=== PATIENT | male | born 1955 | race Caucasian/White ===

== ENCOUNTER 2016-11-13 22:14 | Inpatient (IN) | payer MEDICARE, OTHER ==
[2016-11-13 22:38] LABS: % BASOPHILS 3.7 % (0.0-2.0); % EOSINOPHILS 1.8 % (0.0-5.0); % LYMPHOCYTES 21.2 % (20.0-50.0); % MONOCYTES 8.3 % (2.0-10.0); HEMATOCRIT 43.5 % (41.0-60); MEAN CELL VOLUME 89.4 fl (80-99); MEAN CORPUSCULAR HEMOGLOBIN 28.9 pg (26.0-30.0); MEAN CORPUSCULAR HGB CONC 32.3 pg (28.0-36.0); MEAN PLATELET VOLUME 7.9 fl; NEUTROPHILE ABSOLUTE 4.1 Th/cmm (1.8-8.0); PLATELET COUNT 261 Th/cmm (150-400); RED BLOOD COUNT 4.86 Mil/cmm (4.30-5.70)
[2016-11-13 22:42] LABS: WHITE BLOOD COUNT 6.2 Th/cmm (4.8-10.8)
[2016-11-13 22:53] LABS: ANION GAP 8.6 (7.0-16.0); BUN - UREA NITROGEN 18 mg/dL (7-25); CALCIUM SERUM 8.4 mg/dL (8.6-10.3); CARBON DIOXIDE 20.9 mEq/L (21.0-31.0); CHLORIDE 113 mEq/L (98-107); GLUCOSE 99 mg/dL (70-105); POTASSIUM SERUM 3.5 mEq/L (3.5-5.1); SODIUM SERUM 139 mEq/L (136-145); VALPROIC ACID < 10.0 ug/mL (50.0-100.0)
[2016-11-13 22:54] LABS: URINE BILIRUBIN NEGATIVE (NEGATIVE); URINE BLOOD NEGATIVE (NEGATIVE); URINE GLUCOSE (UA) NEGATIVE (NEGATIVE); URINE KETONE NEGATIVE (NEGATIVE); URINE PROTEIN NEGATIVE (NEGATIVE); URINE UROBILINOGEN 0.2 E.U./dL (0.2 - 1.0)
[2016-11-13 22:57] LABS: URINE BACTERIA OCCASIONAL /hpf (NONE SEEN); URINE COLOR YELLOW; URINE EPITHELIAL CELLS OCCASIONAL /lpf (FEW); URINE RBC 0-2 /hpf (0-5); URINE WBC 0-2 /hpf (0-5)
[2016-11-13 23:19] VITALS: BP 134/80
[2016-11-13] MEDS ORDERED: Fleet Enema 135 mL RC PRN (23:19)
[2016-11-13] MEDS ORDERED: Maalox 30 mL Cup PO PRN (23:19)
[2016-11-13 23:26] LABS: TSH 1.99 uIU/ml (0.34-5.60)
--- NOTE | 2016-11-14 01:55 | ED Physician Chart ---
ED Chief Complaint/HPI - Patient Information Date Seen:: 11/13/16 Time Seen:: 22:20 Chief Complaint:: agitation History of Present Illness:: onset x one day of agitation; no report of SIs, H/As, neck pain, C/P, SOB, cough , Abd. Pain, A/N/V/D/C, fever, chills, or urinary s/s Allergies:: Allergies Allergy/AdvReac Type Severity Reaction Status Date / Time No Known Allergies Allergy Verified 11/13/16 22:16 Vitals:: Vital Signs - 8 hr 11/13/16 11/13/16 22:20 22:21 Temp 97.2 F 98 F HR 76 80 RR 16 16 BP 152/100 152/100 O2 Sat % 96 96 Review:: Nurse's Note Reviewed ED Review of Systems - Review of Systems General/Constitutional: No fever, No chills, No weight loss, No weakness, No diaphoresis, No edema, No loss of appetite Skin: No skin lesions, No rash, No bruising Head: No headache, No light-headedness Eyes: No loss of vision, No pain, No diplopia ENT: No earache, No nasal drainage, No sore throat, No tinnitus Neck: No neck pain, No swelling, No thyromegaly, No stiffness, No mass noted Cardio Vascular: No chest pain, No palpitations, No PND, No orthopnea, No edema Pulmonary: No SOB, No cough, No sputum, No wheezing GI: No nausea, No vomiting, No diarrhea, No pain, No melena, No hematochezia, No constipation, No hematemesis G/U: No dysuria, No frequency, No hematuria Musculoskeletal: No bone or joint pain, No back pain, No muscle pain Endocrine: No polyuria, No polydipsia Psychiatric: Prior psych history, No depression, Anxiety, No suicidal ideation, No homicidal ideation, Auditory hallucination, No visual hallucination Hematopoietic: No bruising, No lymphadenopathy Allergic/Immuno: No urticaria, No angioedema Neurological: No syncope, No focal symptoms, No weakness, No paresthesia, No headache, No seizure, No dizziness, No confusion, No vertigo ED Past Medical History - Past Medical History Obtainable: Yes Past Medical History: Seizures, Other (BPH) Family History: HTN Social History: Non Smoker, No Alcohol, No Drug Use Surgical History: None Psychiatricy History: Schizophrenia, Bipolar Medication: Reviewed Family Medical History - Family Member Mother History Unknown: Yes Ethnicity: Unknown Living Status: Unknown Hx Family Cancer: (unknown) Hx Family Coronary Artery Disease: (unknown) Hx Family Congestive Heart Failure: (unknown) Hx Family Hypertension: (unknown) Hx Family Stroke: (unknown) Hx Family Diabetes: (unknown) Hx Family Seizures: (unknown) Hx Family Dementia: (unknown) Hx Family AIDS: (unknown) Hx Family HIV: No Hx Family COPD: (unknown) Hx Family Hepatitis: (unknown) Hx Family Psychiatric Problems: (unknown) Hx Family Tuberculosis: (unknown) ED Physical Exam - Physical Examination General/Constitutional: Awake, Well-developed, well-nourished, Alert, No distress, GCS 15, Non-toxic appearing, Ambulatory Head: Atraumatic Eyes: Lids, conjuctiva normal, PERRL, EOMI Skin: Nl inspection, No rash, No skin lesions, No ecchymosis, Well hydrated, No lymphadenopathy ENMT: External ears, nose nl, Nasal exam nl, Lips, teeth, gums nl Neck: Nontender, Full ROM w/o pain, No JVD, No nuchal rigidity, No bruit, No mass, No stridor Respiratory: Nl effort/Exclusion, Clear to Auscultation, No Wheeze/Rhonchi/Rales Cardio Vascular: RRR, No murmur, gallop, rubs, NL S1 S2 GI: No tenderness/rebounding/guarding, No organomegaly, No hernia, Normal BS's, Nondistended, No mass/bruits, No McBurney tenderness : No CVA tenderness Extremities: No tenderness or effusion, Full ROM, normal strength in all extremities, No edema, Normal digits & nails Neuro/Psych: Alert/oriented, DTR's symmetric, Normal sensory exam, Normal motor strength, Normal gait, No focal deficits Other Neuro/Psych comments:: + Psychomotor Agitation; no SIs; Misc: normal gait, Normal back, No paraspinal tenderness ED Labs/Radiology/EKG Results - Lab Results Results: Laboratory Tests 11/13/16 11/13/16 11/13/16 22:20 22:30 22:30 WBC 6.2 D RBC 4.86 Hgb 14.0 Hct 43.5 MCV 89.4 MCH 28.9 MCHC Differential 32.3 RDW 15.0 Plt Count 261 MPV 7.9 Neutrophils % 65.0 Lymphocytes % 21.2 Monocytes % 8.3 Eosinophils % 1.8 Basophils % 3.7 H Sodium 139 Potassium 3.5 Chloride 113 H Carbon Dioxide 20.9 L Anion Gap 8.6 BUN 18 Creatinine 1.0 Est GFR ( Amer) > 60.0 Est GFR (Non-Af Amer) > 60.0 BUN/Creatinine Ratio 18.0 Glucose 99 Calcium 8.4 L TSH Urine Source RANDOM Urine Color YELLOW Urine Clarity CLEAR Urine pH 6.0 Ur Specific [place] 1.025 Urine Protein NEGATIVE Urine Glucose (UA) NEGATIVE Urine Ketones NEGATIVE Urine Blood NEGATIVE Urine Nitrate NEGATIVE Urine Bilirubin NEGATIVE Urine Urobilinogen 0.2 Ur Leukocyte Esterase NEGATIVE Urine RBC 0-2 H Urine WBC 0-2 Ur Epithelial Cells OCCASIONAL Urine Bacteria OCCASIONAL Valproic Acid 11/13/16 22:30 WBC RBC Hgb Hct MCV MCH MCHC Differential RDW Plt Count MPV Neutrophils % Lymphocytes % Monocytes % Eosinophils % Basophils % Sodium Potassium Chloride Carbon Dioxide Anion Gap BUN Creatinine Est GFR ( Amer) Est GFR (Non-Af Amer) BUN/Creatinine Ratio Glucose Calcium TSH 1.99 Urine Source Urine Color Urine Clarity Urine pH Ur Specific [place] Urine Protein Urine Glucose (UA) Urine Ketones Urine Blood Urine Nitrate Urine Bilirubin Urine Urobilinogen Ur Leukocyte Esterase Urine RBC Urine WBC Ur Epithelial Cells Urine Bacteria Valproic Acid < 10.0 L ED Septic Shock - . Is Septic Shock (SBP<90, OR Lactate>4 mmol\L) present?: No - <6hrs of presentation: Vital Signs: Vital Signs - 8 hr 11/13/16 11/13/16 22:20 22:21 Temp 97.2 F 98 F HR 76 80 RR 16 16 BP 152/100 152/100 O2 Sat % 96 96 ED Reassessment (Disposition) - Reassessment Reassessment Condition:: Improved - Diagnosis Diagnosis:: Agitatin; Psychosis; Manic-Depression; BiPolar Disorder; Affective Disorder - Aftercare/Follow up Instructions Aftercare/Follow-Up Instructions:: Counseled pt regarding lab results/diagnosis & need follow up, Counseled pt & family regarding lab results/diagnosis & need follow up - Patient Disposition Discharge/Transfer:: Acute Care w/in this hosp Accepting Physician:: Dr. Cerrato Admitted to:: [facility] Admitting Medical Physician:: Dr. Garcia Admitting Psych Physician:: Dr. Cerrato Condition at Disposition:: Stable, Improved ED Discharge Plan - Patient Disposition Admit/Discharge/Transfer: Other Care w/in this hosp
[2016-11-14] MEDS: Pantoprazole 40 mg EC Tab PO SCH (08:35)
[2016-11-14] MEDS: Potassium Chloride 10 mEq ER Tab PO SCH (08:36)
[2016-11-14] MEDS: Betamethasone/Clotrimazole Cream 15 gm Tube TP SCH ×2 (09:07→16:22)
--- NOTE | 2016-11-15 01:29 | History & Physical ---
ADMIT DATE: 11/13/2016 HISTORY OF PRESENT ILLNESS: The patient is a 61-year-old male with long history of hyperlipidemia, gastroesophageal reflux, chronic pain, lymphedema of lower extremities, admitted to [facility] for eval and treatment. The patient was admitted under Dr. Hurtado's service. The patient denies any chest pain, shortness of breath, nausea, vomiting, fever or chills. PAST MEDICAL HISTORY: Significant for chronic lymphedema of lower extremities, hyperlipidemia, psychosis, ____ urinary incontinence, benign prostatic hypertrophy. PAST SURGICAL HISTORY: Skin graft surgery of the face. ALLERGIES: None. MEDICATIONS: Follow admission reconciliation. SOCIAL HISTORY: No smoking, alcohol or drug. FAMILY HISTORY: Noncontributory. REVIEW OF SYSTEMS: ____ disorder. CARDIOVASCULAR SYSTEM: No coronary artery disease. ENDOCRINE SYSTEM: No diabetes or thyroid problem. GASTROINTESTINAL SYSTEM: Has history of gastroesophageal reflux. NEUROLOGICAL SYSTEM: He has history of psychosis. MUSCULOSKELETAL SYSTEM: No muscular dystrophy. HEMATOLOGIC SYSTEM: No bleeding tendencies. RESPIRATORY SYSTEM: No asthma. GENITOURINARY SYSTEM: He has benign prostatic hypertrophy. PHYSICAL EXAMINATION: GENERAL: He is awake, alert, mildly confused. VITAL SIGNS: Temperature 97.4, heart rate 77, blood pressure 129/87. HEENT: Normocephalic. Pupils reacting to light and accommodation. Sclerae clear. NECK: Supple. Negative for lymphadenopathy, JVD or bruit. CHEST: ____ Bilateral normal. No ____ rhonchi or wheezing. HEART: S1, S2 normal. No ____. ABDOMEN: Soft. Bowel sounds positive. EXTREMITIES: No edema. NEUROLOGIC: He is awake, alert, not fully oriented. SKIN: Significant for skin lesion on the face. GENITOURINARY AND RECTAL: Done by primary physician, no complaints. LABORATORY DATA: White blood cell 6.2, hemoglobin 14, hematocrit 43.5, platelets 261. Sodium 139, potassium 3.5, BUN 18, creatinine 1.0. ASSESSMENT: 1. Gastroesophageal reflux. 2. Hyperlipidemia. 3. Psychosis. 4. Benign prostatic hypertrophy. PLAN: The patient will be admitted to the hospital under Dr. Hurtado's service. MEDICAL PROBLEMS TO BE ADDRESSED DURING HOSPITALIZATION: Psychosis. MEDICAL PROBLEMS TO BE ADDRESSED ____ DISCHARGE: Bladder dysfunction, hyperlipidemia, gastroesophageal reflux. The patient is medically stable for activity. Thank you, Dr. Hurtado, for asking me to see your patient. JOB# [id number]
[2016-11-15] MEDS: Pantoprazole 40 mg EC Tab PO SCH (09:06)
[2016-11-15] MEDS: Potassium Chloride 10 mEq ER Tab PO SCH (09:06)
[2016-11-15] MEDS: Betamethasone/Clotrimazole Cream 15 gm Tube TP SCH ×2 (09:07→16:26)
--- NOTE | 2016-11-15 15:11 | Internal Medicine Prog Note ---
Internal Medicine Subjective - Subjective Service Date: 11/15/16 Patient seen and examined:: without staff Patient is:: awake, in bed, talking Per staff patient has:: no adverse event (HE FEELS BETTER,NO COMPLAINTS.) Internal Medicine Objective - Results Result Diagrams: 11/13/16 22:30 11/13/16 22:30 Recent Labs: Laboratory Last Values WBC 6.2 Th/cmm (4.8-10.8) D 11/13/16: RBC 4.86 Mil/cmm (4.30-5.70) 11/13/16 22:30 Hgb 14.0 gm/dL (12-16) 11/13/16: Hct 43.5 % (41.0-60) 11/13/16: MCV 89.4 fl (80-99) 11/13/16 22: MCH 28.9 pg (26.0-30.0) 11/13/16: MCHC Differential 32.3 pg (28.0-36.0) 11/13/16: RDW 15.0 % (11.5-20.0) 11/13/16: Plt Count 261 Th/cmm (150-400) 11/13/16 22:30 MPV 7.9 fl 11/13/16 22:30 Neutrophils % 65.0 % (40.0-80.0) 11/13/16 22:30 Lymphocytes % 21.2 % (20.0-50.0) 11/13/16: Monocytes % 8.3 % (2.0-10.0) 11/13/16: Eosinophils % 1.8 % (0.0-5.0) 11/13/16 22: Basophils % 3.7 % (0.0-2.0) H 11/13/16 22:30 Sodium 139 mEq/L (136-145) 11/13/16 22:30 Potassium 3.5 mEq/L (3.5-5.1) 11/13/16 22:30 Chloride 113 mEq/L (98-107) H 11/13/16 22:30 Carbon Dioxide 20.9 mEq/L (21.0-31.0) L 11/13/16: Anion Gap 8.6 (7.0-16.0) 11/13/16 22:30 BUN 18 mg/dL (7-25) 11/13/16 22:30 Creatinine 1.0 mg/dL (0.7-1.3) 11/13/16 22:30 Est GFR ( Amer) > 60.0 ml/min (>90) 11/13/16 22:30 Est GFR (Non-Af Amer) > 60.0 ml/min 11/13/16 22:30 BUN/Creatinine Ratio 18.0 11/13/16 22:30 Glucose 99 mg/dL (70-105) 11/13/16 22:30 Calcium 8.4 mg/dL (8.6-10.3) L 11/13/16 22:30 TSH 1.99 uIU/ml (0.34-5.60) 11/13/16 22:30 Urine Source RANDOM 11/13/16 22:20 Urine Color YELLOW 11/13/16 22:20 Urine Clarity CLEAR (CLEAR) 11/13/16 22:20 Urine pH 6.0 (4.6 - 8.0) 11/13/16 22:20 Ur Specific [place] 1.025 (1.005-1.030) 11/13/16 22:20 Urine Protein NEGATIVE mg/dL (NEGATIVE) 11/13/16 22:20 Urine Glucose (UA) NEGATIVE mg/dL (NEGATIVE) 11/13/16 22:20 Urine Ketones NEGATIVE mg/dL (NEGATIVE) 11/13/16 22:20 Urine Blood NEGATIVE (NEGATIVE) 11/13/16 22:20 Urine Nitrate NEGATIVE (NEGATIVE) 11/13/16 22:20 Urine Bilirubin NEGATIVE (NEGATIVE) 11/13/16 22:20 Urine Urobilinogen 0.2 E.U./dL (0.2 - 1.0) 11/13/16 22:20 Ur Leukocyte Esterase NEGATIVE (NEGATIVE) 11/13/16 22:20 Urine RBC 0-2 /hpf (0-5) H 11/13/16 22:20 Urine WBC 0-2 /hpf (0-5) 11/13/16 22:20 Ur Epithelial Cells OCCASIONAL /lpf (FEW) 11/13/16 22:20 Urine Bacteria OCCASIONAL /hpf (NONE SEEN) 11/13/16 22:20 Valproic Acid < 10.0 ug/mL (50.0-100.0) L 11/13/16 22:30 RPR NONREACTIVE (NONREACTIVE) 11/13/16 22:30 - Physical Exam Vitals and I&O: Vital Signs Temp 97.3 F 11/15/16 06:46 Pulse 80 11/15/16 06:46 Resp 20 11/15/16 06:46 BP 124/86 11/15/16 09:07 Pulse Ox 100 11/15/16 06:46 Intake & Output 11/14/16 11/15/16 11/15/16 18:59 06:59 18:59 Intake Total 2400 120 Balance 2400 120 Intake: Oral 2400 120 Other: # Voids 4 3 # Bowel Movements 0 Active Medications: Current Medications Acetaminophen (Tylenol) 650 mg PO Q6H PRN PRN Reason: Mild Pain/Headache/T above 101 Stop: 01/12/17 23:18 Al Hydrox/Mg Hydrox/Simethicone (Maalox) 30 ml PO Q6H PRN PRN Reason: Dyspepsia Stop: 01/12/17 23:18 Last Admin: 11/15/16 14:32 Dose: 30 ml Baclofen (Lioresal) 10 mg PO BID JANEY Stop: 01/13/17 08:59 Last Admin: 11/15/16 09:06 Dose: 10 mg Betamethasone/Clotrimazole (Lotrisone Cream) 1 appl TP BID [facility] Stop: 01/13/17 08:59 Last Admin: 11/15/16 09:07 Dose: 1 appl Divalproex Sodium (Depakote Dr) 500 mg PO HS JANEY PRN Reason: Protocol Stop: 01/13/17 20:59 Last Admin: 11/14/16 21:02 Dose: 500 mg Docusate Sodium (Colace) 100 mg PO DAILY JANEY Stop: 01/13/17 08:59 Last Admin: 11/15/16 09:06 Dose: 100 mg Furosemide (Lasix) 20 mg PO DAILY JANEY Stop: 01/13/17 08:59 Last Admin: 11/15/16 09:07 Dose: 20 mg Lorazepam (Ativan) 1 mg PO Q6H PRN; Protocol PRN Reason: Anxiety/Agitation Stop: 01/12/17 23:18 Pantoprazole Sodium (Protonix) 40 mg PO DAILY JANEY Stop: 01/13/17 08:59 Last Admin: 11/15/16 09:06 Dose: 40 mg Potassium Chloride (Klor-Con) 10 meq PO DAILY JANEY Stop: 01/13/17 08:59 Last Admin: 11/15/16 09:06 Dose: 10 meq Quetiapine Fumarate (Seroquel) 100 mg PO BID JANEY PRN Reason: Protocol Stop: 01/13/17 16:59 Last Admin: 11/15/16 09:06 Dose: 100 mg Simvastatin (Zocor) 20 mg PO HS JANEY Stop: 01/13/17 20:59 Last Admin: 11/14/16 21:02 Dose: 20 mg Sodium Phosphate (Fleet Enema) 135 ml RC DAILY PRN PRN Reason: Constipation Stop: 01/12/17 23:18 Tamsulosin HCl (Flomax) 0.4 mg PO DAILY JANEY Stop: 01/13/17 08:59 Last Admin: 11/15/16 09:05 Dose: 0.4 mg Temazepam (Restoril) 30 mg PO HS JANEY Stop: 01/12/17 23:44 Last Admin: 11/14/16 21:02 Dose: 30 mg Trazodone HCl (Desyrel) 100 mg PO HS JANEY Stop: 01/13/17 20:59 Last Admin: 11/14/16 21:02 Dose: 100 mg General: demented HEENT: NC/AT, PERRLA, EOMI, anicteric sclerae, throat clear Neck: Supple, No JVD, No thyromegaly, +2 carotid pulse wo bruit Lungs: CTAB Cardiovascular: RRR, Normal S1, Normal S2, without murmur Abdomen: soft, non-tender, non-distended Extremities: clear Neurological: gait stable - Procedures Procedures: Procedures Procedure Code Date ABDOMEN SURGERY PROCEDURE 29968 07/30/99 CHOLECYSTECTOMY 51.22 07/30/99 DIAGNOSTIC COLONOSCOPY 25326 10/09/99 DILATION OF INTESTINE 46.85 10/09/99 DX ULTRASOUND-ABDOMEN 88.76 07/30/99 EGD BIOPSY SINGLE/MULTIPLE 36709 08/27/99 ELECTROCARDIOGRAM 89.52 10/09/99 ELECTROCARDIOGRAM COMPLETE 70967 10/09/99 ENDOSC RETROGRADE CHOLANGIOPANCREATOGRAPHY [ERCP] 51.10 07/30/99 ERCP W/SPECIMEN COLLECTION 87106 07/30/99 ESOPHAGOGASTRODUODENOSCOPY [EGD] W/CLOSED BIOPSY 45.16 08/27/99 OTH LYSIS-PERITONEAL ADHES 54.59 07/30/99 OTHER GROUP THERAPY 94.44 07/06/14 REMOVAL OF GALLBLADDER 39919 07/30/99 US EXAM ABDOM COMPLETE 25583 07/30/99 Internal Medicine Assmt/Plan - Assessment Assessment: 1.HYPERLIPIDEMEA. 2.BPH. 3.EDINSON. 4.PSYCHOSIS. - Plan Plan: CONTINUE ON CURRENT MEDICATION AND DIET.
[2016-11-16] MEDS: Potassium Chloride 10 mEq ER Tab PO SCH (08:31)
[2016-11-16] MEDS: Pantoprazole 40 mg EC Tab PO SCH (08:31)
[2016-11-16] MEDS: Betamethasone/Clotrimazole Cream 15 gm Tube TP SCH ×2 (08:32→16:13)
--- NOTE | 2016-11-16 16:55 | General Progress Note ---
Subjective - Review of Systems Service Date: 11/16/16 Subjective: RESTING COMFORTABLY NO DISTRESS Objective - Results Result Diagrams: 11/13/16 22:30 11/13/16 22:30 Recent Labs: Laboratory Last Values WBC 6.2 Th/cmm (4.8-10.8) D 11/13/16 22:30 RBC 4.86 Mil/cmm (4.30-5.70) 11/13/16 22:30 Hgb 14.0 gm/dL (12-16) 11/13/16 22:30 Hct 43.5 % (41.0-60) 11/13/16 22:30 MCV 89.4 fl (80-99) 11/13/16 22:30 MCH 28.9 pg (26.0-30.0) 11/13/16 22:30 MCHC Differential 32.3 pg (28.0-36.0) 11/13/16 22:30 RDW 15.0 % (11.5-20.0) 11/13/16 22:30 Plt Count 261 Th/cmm (150-400) 11/13/16 22:30 MPV 7.9 fl 11/13/16 22:30 Neutrophils % 65.0 % (40.0-80.0) 11/13/16 22:30 Lymphocytes % 21.2 % (20.0-50.0) 11/13/16 22: Monocytes % 8.3 % (2.0-10.0) 11/13/16 22:30 Eosinophils % 1.8 % (0.0-5.0) 11/13/16 22: Basophils % 3.7 % (0.0-2.0) H 11/13/16 22:30 Sodium 139 mEq/L (136-145) 11/13/16 22:30 Potassium 3.5 mEq/L (3.5-5.1) 11/13/16 22:30 Chloride 113 mEq/L (98-107) H 11/13/16 22:30 Carbon Dioxide 20.9 mEq/L (21.0-31.0) L 11/13/16 22:30 Anion Gap 8.6 (7.0-16.0) 11/13/16 22:30 BUN 18 mg/dL (7-25) 11/13/16 22:30 Creatinine 1.0 mg/dL (0.7-1.3) 11/13/16 22:30 Est GFR ( Amer) > 60.0 ml/min (>90) 11/13/16 22:30 Est GFR (Non-Af Amer) > 60.0 ml/min 11/13/16 22:30 BUN/Creatinine Ratio 18.0 11/13/16 22:30 Glucose 99 mg/dL (70-105) 11/13/16 22:30 Calcium 8.4 mg/dL (8.6-10.3) L 11/13/16 22:30 TSH 1.99 uIU/ml (0.34-5.60) 11/13/16 22:30 Urine Source RANDOM 11/13/16 22:20 Urine Color YELLOW 11/13/16 22:20 Urine Clarity CLEAR (CLEAR) 11/13/16 22:20 Urine pH 6.0 (4.6 - 8.0) 11/13/16 22:20 Ur Specific [place] 1.025 (1.005-1.030) 11/13/16 22:20 Urine Protein NEGATIVE mg/dL (NEGATIVE) 11/13/16 22:20 Urine Glucose (UA) NEGATIVE mg/dL (NEGATIVE) 11/13/16 22:20 Urine Ketones NEGATIVE mg/dL (NEGATIVE) 11/13/16 22:20 Urine Blood NEGATIVE (NEGATIVE) 11/13/16 22:20 Urine Nitrate NEGATIVE (NEGATIVE) 11/13/16 22:20 Urine Bilirubin NEGATIVE (NEGATIVE) 11/13/16 22:20 Urine Urobilinogen 0.2 E.U./dL (0.2 - 1.0) 11/13/16 22:20 Ur Leukocyte Esterase NEGATIVE (NEGATIVE) 11/13/16 22:20 Urine RBC 0-2 /hpf (0-5) H 11/13/16 22:20 Urine WBC 0-2 /hpf (0-5) 11/13/16 22:20 Ur Epithelial Cells OCCASIONAL /lpf (FEW) 11/13/16 22:20 Urine Bacteria OCCASIONAL /hpf (NONE SEEN) 11/13/16 22:20 Valproic Acid < 10.0 ug/mL (50.0-100.0) L 11/13/16 22:30 RPR NONREACTIVE (NONREACTIVE) 11/13/16 22:30 - Physical Exam Vitals and I&O: Vital Signs Temp 97.6 F 11/16/16 15:40 Pulse 83 11/16/16 15:40 Resp 18 11/16/16 15:40 BP 101/60 11/16/16 15:40 Pulse Ox 98 11/16/16 15:40 Intake & Output 11/15/16 11/16/16 11/16/16 18:59 06:59 18:59 Intake Total 800 360 Balance 800 360 Intake: Oral 800 360 Other: # Voids 3 2 # Bowel Movements 1 Active Medications: Current Medications Acetaminophen (Tylenol) 650 mg PO Q6H PRN PRN Reason: Mild Pain/Headache/T above 101 Stop: 01/12/17 23:18 Al Hydrox/Mg Hydrox/Simethicone (Maalox) 30 ml PO Q6H PRN PRN Reason: Dyspepsia Stop: 01/12/17 23:18 Last Admin: 11/15/16 14:32 Dose: 30 ml Baclofen (Lioresal) 10 mg PO BID JANEY Stop: 01/13/17 08:59 Last Admin: 11/16/16 16:13 Dose: 10 mg Betamethasone/Clotrimazole (Lotrisone Cream) 1 appl TP BID JANEY Stop: 01/13/17 08:59 Last Admin: 11/16/16 16:13 Dose: 1 appl Divalproex Sodium (Depakote Dr) 500 mg PO HS JANEY PRN Reason: Protocol Stop: 01/13/17 20:59 Last Admin: 11/15/16 20:30 Dose: 500 mg Docusate Sodium (Colace) 100 mg PO DAILY JANEY Stop: 01/13/17 08:59 Last Admin: 11/16/16 08:30 Dose: 100 mg Furosemide (Lasix) 20 mg PO DAILY JANEY Stop: 01/13/17 08:59 Last Admin: 11/16/16 08:31 Dose: 20 mg Lorazepam (Ativan) 1 mg PO Q6H PRN; Protocol PRN Reason: Anxiety/Agitation Stop: 01/12/17 23:18 Pantoprazole Sodium (Protonix) 40 mg PO DAILY JANEY Stop: 01/13/17 08:59 Last Admin: 11/16/16 08:31 Dose: 40 mg Potassium Chloride (Klor-Con) 10 meq PO DAILY JANEY Stop: 01/13/17 08:59 Last Admin: 11/16/16 08:31 Dose: 10 meq Quetiapine Fumarate (Seroquel) 100 mg PO BID JANEY PRN Reason: Protocol Stop: 01/13/17 16:59 Last Admin: 11/16/16 16:15 Dose: 100 mg Simvastatin (Zocor) 20 mg PO HS [facility] Stop: 01/13/17 20:59 Last Admin: 11/15/16 20:30 Dose: 20 mg Sodium Phosphate (Fleet Enema) 135 ml RC DAILY PRN PRN Reason: Constipation Stop: 01/12/17 23:18 Tamsulosin HCl (Flomax) 0.4 mg PO DAILY [facility] Stop: 01/13/17 08:59 Last Admin: 11/16/16 08:32 Dose: 0.4 mg Temazepam (Restoril) 30 mg PO HS [facility] Stop: 01/12/17 23:44 Last Admin: 11/15/16 20:30 Dose: 30 mg Trazodone HCl (Desyrel) 100 mg PO HS [facility] Stop: 01/13/17 20:59 Last Admin: 11/15/16 20:30 Dose: 100 mg General: Alert HEENT: Atraumatic, PERRLA, EOMI Neck: Supple, JVD Cardiovascular: Regular rate, Normal S1, Normal S2 Lungs: Clear to auscultation Abdomen: Bowel sounds, Soft - Procedures Procedures: Procedures Procedure Code Date ABDOMEN SURGERY PROCEDURE 22377 07/30/99 CHOLECYSTECTOMY 51.22 07/30/99 DIAGNOSTIC COLONOSCOPY 50638 10/09/99 DILATION OF INTESTINE 46.85 10/09/99 DX ULTRASOUND-ABDOMEN 88.76 07/30/99 EGD BIOPSY SINGLE/MULTIPLE 44955 08/27/99 ELECTROCARDIOGRAM 89.52 10/09/99 ELECTROCARDIOGRAM COMPLETE 96431 10/09/99 ENDOSC RETROGRADE CHOLANGIOPANCREATOGRAPHY [ERCP] 51.10 07/30/99 ERCP W/SPECIMEN COLLECTION 37690 07/30/99 ESOPHAGOGASTRODUODENOSCOPY [EGD] W/CLOSED BIOPSY 45.16 08/27/99 OTH LYSIS-PERITONEAL ADHES 54.59 07/30/99 OTHER GROUP THERAPY 94.44 07/06/14 REMOVAL OF GALLBLADDER 69352 07/30/99 US EXAM ABDOM COMPLETE 63983 07/30/99 Assessment/Plan - Problem List Patient Problems: All Active Problems Chest pain (Acute) R07.9 Depression (Acute) F32.9 Kidney stones (Acute) Pain (Acute) R52 - Assessment Assessment: 1.HYPERLIPIDEMEA. 2.BPH. 3.EDINSON. 4.PSYCHOSIS. - Plan Plan: CONT CURRENT TREATMENT
--- NOTE | 2016-11-16 21:19 | Progress Notes ---
DATE: 11/16/2016 SUBJECTIVE: Chart reviewed and the patient interviewed. Also discussed the patient's condition with the staff and reviewed records and labs. The patient continued to be confused and he continued to talk about his coming to the hospital in order to have surgery. Also, is still suspicious and paranoid and is still extremely agitated and irritable. The patient also had difficulty hearing and I have to speak louder in order to hear me. Also, personal hygiene is still poor and patient is still disheveled. ASSESSMENT: The patient is still agitated and psychotic. TREATMENT PLAN: We will continue monitoring his behavior and his condition closely. Also, continue Depakote and adjusting the dose of Seroquel. Also, continue to work on his irritability and confusion. JOB# [id number]
--- NOTE | 2016-11-17 07:55 | General Progress Note ---
Subjective - Review of Systems Service Date: 11/17/16 Subjective: RESTING COMFORTABLY NO DISTRESS Objective - Results Result Diagrams: 11/13/16 22:30 11/13/16 22:30 Recent Labs: Laboratory Last Values WBC 6.2 Th/cmm (4.8-10.8) D 11/13/16 22:30 RBC 4.86 Mil/cmm (4.30-5.70) 11/13/16 22:30 Hgb 14.0 gm/dL (12-16) 11/13/16 22:30 Hct 43.5 % (41.0-60) 11/13/16 22:30 MCV 89.4 fl (80-99) 11/13/16 22:30 MCH 28.9 pg (26.0-30.0) 11/13/16 22: MCHC Differential 32.3 pg (28.0-36.0) 11/13/16 22:30 RDW 15.0 % (11.5-20.0) 11/13/16 22:30 Plt Count 261 Th/cmm (150-400) 11/13/16 22:30 MPV 7.9 fl 11/13/16 22:30 Neutrophils % 65.0 % (40.0-80.0) 11/13/16 22:30 Lymphocytes % 21.2 % (20.0-50.0) 11/13/16 22: Monocytes % 8.3 % (2.0-10.0) 11/13/16 22:30 Eosinophils % 1.8 % (0.0-5.0) 11/13/16 22: Basophils % 3.7 % (0.0-2.0) H 11/13/16 22:30 Sodium 139 mEq/L (136-145) 11/13/16 22:30 Potassium 3.5 mEq/L (3.5-5.1) 11/13/16 22:30 Chloride 113 mEq/L (98-107) H 11/13/16 22:30 Carbon Dioxide 20.9 mEq/L (21.0-31.0) L 11/13/16 22:30 Anion Gap 8.6 (7.0-16.0) 11/13/16 22:30 BUN 18 mg/dL (7-25) 11/13/16 22:30 Creatinine 1.0 mg/dL (0.7-1.3) 11/13/16 22:30 Est GFR ( Amer) > 60.0 ml/min (>90) 11/13/16 22:30 Est GFR (Non-Af Amer) > 60.0 ml/min 11/13/16 22:30 BUN/Creatinine Ratio 18.0 11/13/16 22:30 Glucose 99 mg/dL (70-105) 11/13/16 22:30 Calcium 8.4 mg/dL (8.6-10.3) L 11/13/16 22:30 TSH 1.99 uIU/ml (0.34-5.60) 11/13/16 22:30 Urine Source RANDOM 11/13/16 22:20 Urine Color YELLOW 11/13/16 22:20 Urine Clarity CLEAR (CLEAR) 11/13/16 22:20 Urine pH 6.0 (4.6 - 8.0) 11/13/16 22:20 Ur Specific [place] 1.025 (1.005-1.030) 11/13/16 22:20 Urine Protein NEGATIVE mg/dL (NEGATIVE) 11/13/16 22:20 Urine Glucose (UA) NEGATIVE mg/dL (NEGATIVE) 11/13/16 22:20 Urine Ketones NEGATIVE mg/dL (NEGATIVE) 11/13/16 22:20 Urine Blood NEGATIVE (NEGATIVE) 11/13/16 22:20 Urine Nitrate NEGATIVE (NEGATIVE) 11/13/16 22:20 Urine Bilirubin NEGATIVE (NEGATIVE) 11/13/16 22:20 Urine Urobilinogen 0.2 E.U./dL (0.2 - 1.0) 11/13/16 22:20 Ur Leukocyte Esterase NEGATIVE (NEGATIVE) 11/13/16 22:20 Urine RBC 0-2 /hpf (0-5) H 11/13/16 22:20 Urine WBC 0-2 /hpf (0-5) 11/13/16 22:20 Ur Epithelial Cells OCCASIONAL /lpf (FEW) 11/13/16 22:20 Urine Bacteria OCCASIONAL /hpf (NONE SEEN) 11/13/16 22:20 Valproic Acid < 10.0 ug/mL (50.0-100.0) L 11/13/16 22:30 RPR NONREACTIVE (NONREACTIVE) 11/13/16 22:30 - Physical Exam Vitals and I&O: Vital Signs Temp 98.2 F 11/17/16 06:45 Pulse 69 11/17/16 06:45 Resp 18 11/17/16 06:45 BP 98/63 11/17/16 06:45 Pulse Ox 98 11/17/16 06:45 Intake & Output 11/16/16 11/17/16 11/17/16 18:59 06:59 18:59 Intake Total 1000 480 Balance 1000 480 Intake: Oral 1000 480 Other: # Voids 4 1 # Bowel Movements 1 Active Medications: Current Medications Acetaminophen (Tylenol) 650 mg PO Q6H PRN PRN Reason: Mild Pain/Headache/T above 101 Stop: 01/12/17 23:18 Last Admin: 11/17/16 03:58 Dose: 650 mg Al Hydrox/Mg Hydrox/Simethicone (Maalox) 30 ml PO Q6H PRN PRN Reason: Dyspepsia Stop: 01/12/17 23:18 Last Admin: 11/15/16 14:32 Dose: 30 ml Baclofen (Lioresal) 10 mg PO BID [facility] Stop: 01/13/17 08:59 Last Admin: 11/16/16 16:13 Dose: 10 mg Betamethasone/Clotrimazole (Lotrisone Cream) 1 appl TP BID [facility] Stop: 01/13/17 08:59 Last Admin: 11/16/16 16:13 Dose: 1 appl Divalproex Sodium (Depakote Dr) 500 mg PO HS [facility] PRN Reason: Protocol Stop: 01/13/17 20:59 Last Admin: 11/16/16 20:31 Dose: 500 mg Docusate Sodium (Colace) 100 mg PO DAILY [facility] Stop: 01/13/17 08:59 Last Admin: 11/16/16 08:30 Dose: 100 mg Furosemide (Lasix) 20 mg PO DAILY [facility] Stop: 01/13/17 08:59 Last Admin: 11/16/16 08:31 Dose: 20 mg Lorazepam (Ativan) 1 mg PO Q6H PRN; Protocol PRN Reason: Anxiety/Agitation Stop: 01/12/17 23:18 Pantoprazole Sodium (Protonix) 40 mg PO DAILY [facility] Stop: 01/13/17 08:59 Last Admin: 11/16/16 08:31 Dose: 40 mg Potassium Chloride (Klor-Con) 10 meq PO DAILY [facility] Stop: 01/13/17 08:59 Last Admin: 11/16/16 08:31 Dose: 10 meq Quetiapine Fumarate (Seroquel) 100 mg PO BID [facility] PRN Reason: Protocol Stop: 01/13/17 16:59 Last Admin: 11/16/16 16:15 Dose: 100 mg Simvastatin (Zocor) 20 mg PO HS [facility] Stop: 01/13/17 20:59 Last Admin: 11/16/16 20:30 Dose: 20 mg Sodium Phosphate (Fleet Enema) 135 ml RC DAILY PRN PRN Reason: Constipation Stop: 01/12/17 23:18 Tamsulosin HCl (Flomax) 0.4 mg PO DAILY [facility] Stop: 01/13/17 08:59 Last Admin: 11/16/16 08:32 Dose: 0.4 mg Temazepam (Restoril) 30 mg PO HS [facility] Stop: 01/12/17 23:44 Last Admin: 11/16/16 20:31 Dose: 30 mg Trazodone HCl (Desyrel) 100 mg PO HS [facility] Stop: 01/13/17 20:59 Last Admin: 11/16/16 20:31 Dose: 100 mg General: Alert HEENT: Atraumatic, PERRLA, EOMI Neck: Supple, JVD Cardiovascular: Regular rate, Normal S1, Normal S2 Lungs: Clear to auscultation Abdomen: Bowel sounds, Soft - Procedures Procedures: Procedures Procedure Code Date ABDOMEN SURGERY PROCEDURE 95854 07/30/99 CHOLECYSTECTOMY 51.22 07/30/99 DIAGNOSTIC COLONOSCOPY 23776 10/09/99 DILATION OF INTESTINE 46.85 10/09/99 DX ULTRASOUND-ABDOMEN 88.76 07/30/99 EGD BIOPSY SINGLE/MULTIPLE 21608 08/27/99 ELECTROCARDIOGRAM 89.52 10/09/99 ELECTROCARDIOGRAM COMPLETE 03419 10/09/99 ENDOSC RETROGRADE CHOLANGIOPANCREATOGRAPHY [ERCP] 51.10 07/30/99 ERCP W/SPECIMEN COLLECTION 57997 07/30/99 ESOPHAGOGASTRODUODENOSCOPY [EGD] W/CLOSED BIOPSY 45.16 08/27/99 OTH LYSIS-PERITONEAL ADHES 54.59 07/30/99 OTHER GROUP THERAPY 94.44 07/06/14 REMOVAL OF GALLBLADDER 50480 07/30/99 US EXAM ABDOM COMPLETE 02612 07/30/99 Assessment/Plan - Problem List Patient Problems: All Active Problems Chest pain (Acute) R07.9 Depression (Acute) F32.9 Kidney stones (Acute) Pain (Acute) R52 - Assessment Assessment: 1.HYPERLIPIDEMEA. 2.BPH. 3.EDINSON. 4.PSYCHOSIS. - Plan Plan: CONT CURRENT TREATMENT
[2016-11-17] MEDS: Betamethasone/Clotrimazole Cream 15 gm Tube TP SCH ×2 (08:10→16:56)
[2016-11-17] MEDS: Pantoprazole 40 mg EC Tab PO SCH (08:11)
[2016-11-17] MEDS: Potassium Chloride 10 mEq ER Tab PO SCH (08:13)
--- NOTE | 2016-11-17 20:28 | Progress Notes ---
DATE: 11/17/2016 SUBJECTIVE: Chart reviewed and the patient interviewed. Also discussed the patient's condition with the staff and reviewed records and labs. The patient is still isolative and is still withdrawn. Also, interacting minimally with others. The patient also is still suspicious and paranoid. During interview, he still thinks that he is in the hospital in order to have surgery. He also still has mood swings and he still does not want to leave the room and wants to stay by himself all the time. The patient also is still disheveled and also seems to be preoccupied. ASSESSMENT: The patient is still psychotic. TREATMENT PLAN: The patient is complaining that the Seroquel during the day makes him tired and sedated. We will change Seroquel to 100 mg at bedtime and we will continue to follow up. JOB# [id number]
[2016-11-18] MEDS: Betamethasone/Clotrimazole Cream 15 gm Tube TP SCH ×2 (08:08→16:32)
[2016-11-18] MEDS: Pantoprazole 40 mg EC Tab PO SCH (08:08)
[2016-11-18] MEDS: Potassium Chloride 10 mEq ER Tab PO SCH (08:08)
--- NOTE | 2016-11-18 19:15 | Internal Medicine Prog Note ---
Internal Medicine Subjective - Subjective Service Date: 11/18/16 Patient seen and examined:: with staff Patient is:: awake, in bed, talking Per staff patient has:: no adverse event (HE FEELS BETTER,NO COMPLAINTS.) Internal Medicine Objective - Results Result Diagrams: 11/13/16 22:30 11/13/16 22:30 Recent Labs: Laboratory Last Values WBC 6.2 Th/cmm (4.8-10.8) D 11/13/16: RBC 4.86 Mil/cmm (4.30-5.70) 11/13/16 22:30 Hgb 14.0 gm/dL (12-16) 11/13/16: Hct 43.5 % (41.0-60) 11/13/16: MCV 89.4 fl (80-99) 11/13/16 22: MCH 28.9 pg (26.0-30.0) 11/13/16: MCHC Differential 32.3 pg (28.0-36.0) 11/13/16: RDW 15.0 % (11.5-20.0) 11/13/16 22: Plt Count 261 Th/cmm (150-400) 11/13/16 22:30 MPV 7.9 fl 11/13/16 22:30 Neutrophils % 65.0 % (40.0-80.0) 11/13/16 22:30 Lymphocytes % 21.2 % (20.0-50.0) 11/13/16: Monocytes % 8.3 % (2.0-10.0) 11/13/16: Eosinophils % 1.8 % (0.0-5.0) 11/13/16 22: Basophils % 3.7 % (0.0-2.0) H 11/13/16 22:30 Sodium 139 mEq/L (136-145) 11/13/16 22:30 Potassium 3.5 mEq/L (3.5-5.1) 11/13/16 22:30 Chloride 113 mEq/L (98-107) H 11/13/16 22:30 Carbon Dioxide 20.9 mEq/L (21.0-31.0) L 11/13/16: Anion Gap 8.6 (7.0-16.0) 11/13/16 22:30 BUN 18 mg/dL (7-25) 11/13/16 22:30 Creatinine 1.0 mg/dL (0.7-1.3) 11/13/16 22:30 Est GFR ( Amer) > 60.0 ml/min (>90) 11/13/16 22:30 Est GFR (Non-Af Amer) > 60.0 ml/min 11/13/16 22:30 BUN/Creatinine Ratio 18.0 11/13/16 22:30 Glucose 99 mg/dL (70-105) 11/13/16 22:30 Calcium 8.4 mg/dL (8.6-10.3) L 11/13/16 22:30 TSH 1.99 uIU/ml (0.34-5.60) 11/13/16 22:30 Urine Source RANDOM 11/13/16 22:20 Urine Color YELLOW 11/13/16 22:20 Urine Clarity CLEAR (CLEAR) 11/13/16 22:20 Urine pH 6.0 (4.6 - 8.0) 11/13/16 22:20 Ur Specific [place] 1.025 (1.005-1.030) 11/13/16 22:20 Urine Protein NEGATIVE mg/dL (NEGATIVE) 11/13/16 22:20 Urine Glucose (UA) NEGATIVE mg/dL (NEGATIVE) 11/13/16 22:20 Urine Ketones NEGATIVE mg/dL (NEGATIVE) 11/13/16 22:20 Urine Blood NEGATIVE (NEGATIVE) 11/13/16 22:20 Urine Nitrate NEGATIVE (NEGATIVE) 11/13/16 22:20 Urine Bilirubin NEGATIVE (NEGATIVE) 11/13/16 22:20 Urine Urobilinogen 0.2 E.U./dL (0.2 - 1.0) 11/13/16 22:20 Ur Leukocyte Esterase NEGATIVE (NEGATIVE) 11/13/16 22:20 Urine RBC 0-2 /hpf (0-5) H 11/13/16 22:20 Urine WBC 0-2 /hpf (0-5) 11/13/16 22:20 Ur Epithelial Cells OCCASIONAL /lpf (FEW) 11/13/16 22:20 Urine Bacteria OCCASIONAL /hpf (NONE SEEN) 11/13/16 22:20 Valproic Acid < 10.0 ug/mL (50.0-100.0) L 11/13/16 22:30 RPR NONREACTIVE (NONREACTIVE) 11/13/16 22:30 - Physical Exam Vitals and I&O: Vital Signs Temp 97.8 F 11/18/16 15:45 Pulse 73 11/18/16 15:45 Resp 18 11/18/16 15:45 BP 160/66 11/18/16 15:45 Pulse Ox 96 11/18/16 15:45 Intake & Output 11/18/16 11/18/16 11/19/16 06:59 18:59 06:59 Intake Total 360 2200 Balance 360 2200 Intake: Oral 360 2200 Other: # Voids 1 4 # Bowel Movements 0 0 Active Medications: Current Medications Acetaminophen (Tylenol) 650 mg PO Q6H PRN PRN Reason: Mild Pain/Headache/T above 101 Stop: 01/12/17 23:18 Last Admin: 11/17/16 03:58 Dose: 650 mg Al Hydrox/Mg Hydrox/Simethicone (Maalox) 30 ml PO Q6H PRN PRN Reason: Dyspepsia Stop: 01/12/17 23:18 Last Admin: 11/15/16 14:32 Dose: 30 ml Baclofen (Lioresal) 10 mg PO BID [facility] Stop: 01/13/17 08:59 Last Admin: 11/18/16 16:32 Dose: 10 mg Betamethasone/Clotrimazole (Lotrisone Cream) 1 appl TP BID [facility] Stop: 01/13/17 08:59 Last Admin: 11/18/16 16:32 Dose: 1 appl Divalproex Sodium (Depakote Dr) 500 mg PO HS [facility] PRN Reason: Protocol Stop: 01/13/17 20:59 Last Admin: 11/17/16 20:23 Dose: 500 mg Docusate Sodium (Colace) 100 mg PO DAILY [facility] Stop: 01/13/17 08:59 Last Admin: 11/18/16 08:08 Dose: 100 mg Furosemide (Lasix) 20 mg PO DAILY [facility] Stop: 01/13/17 08:59 Last Admin: 11/18/16 08:08 Dose: Not Given Lorazepam (Ativan) 1 mg PO Q6H PRN; Protocol PRN Reason: Anxiety/Agitation Stop: 11/12/17 23:18 Pantoprazole Sodium (Protonix) 40 mg PO DAILY [facility] Stop: 01/13/17 08:59 Last Admin: 11/18/16 08:08 Dose: 40 mg Potassium Chloride (Klor-Con) 10 meq PO DAILY [facility] Stop: 01/13/17 08:59 Last Admin: 11/18/16 08:08 Dose: 10 meq Quetiapine Fumarate (Seroquel) 200 mg PO HS [facility] PRN Reason: Protocol Stop: 01/16/17 20:59 Last Admin: 11/17/16 20:23 Dose: 200 mg Simvastatin (Zocor) 20 mg PO HS [facility] Stop: 01/13/17 20:59 Last Admin: 11/17/16 20:23 Dose: 20 mg Sodium Phosphate (Fleet Enema) 135 ml RC DAILY PRN PRN Reason: Constipation Stop: 01/12/17 23:18 Tamsulosin HCl (Flomax) 0.4 mg PO DAILY [facility] Stop: 01/13/17 08:59 Last Admin: 11/18/16 08:09 Dose: 0.4 mg Temazepam (Restoril) 30 mg PO HS [facility] Stop: 01/12/17 23:44 Last Admin: 11/17/16 20:23 Dose: 30 mg Trazodone HCl (Desyrel) 100 mg PO HS [facility] Stop: 01/13/17 20:59 Last Admin: 11/17/16 20:23 Dose: 100 mg General: demented HEENT: NC/AT, PERRLA, EOMI, anicteric sclerae, throat clear Neck: Supple, No JVD, No thyromegaly, +2 carotid pulse wo bruit Lungs: CTAB Cardiovascular: RRR, Normal S1, Normal S2, without murmur Abdomen: soft, non-tender, non-distended Extremities: clear Neurological: gait stable - Procedures Procedures: Procedures Procedure Code Date ABDOMEN SURGERY PROCEDURE 85035 07/30/99 CHOLECYSTECTOMY 51.22 07/30/99 DIAGNOSTIC COLONOSCOPY 27733 10/09/99 DILATION OF INTESTINE 46.85 10/09/99 DX ULTRASOUND-ABDOMEN 88.76 07/30/99 EGD BIOPSY SINGLE/MULTIPLE 59407 08/27/99 ELECTROCARDIOGRAM 89.52 10/09/99 ELECTROCARDIOGRAM COMPLETE 60018 10/09/99 ENDOSC RETROGRADE CHOLANGIOPANCREATOGRAPHY [ERCP] 51.10 07/30/99 ERCP W/SPECIMEN COLLECTION 05827 07/30/99 ESOPHAGOGASTRODUODENOSCOPY [EGD] W/CLOSED BIOPSY 45.16 08/27/99 OTH LYSIS-PERITONEAL ADHES 54.59 07/30/99 OTHER GROUP THERAPY 94.44 07/06/14 REMOVAL OF GALLBLADDER 26962 07/30/99 US EXAM ABDOM COMPLETE 67234 07/30/99 Internal Medicine Assmt/Plan - Assessment Assessment: 1.HYPERLIPIDEMEA. 2.BPH. 3.EDINSON. 4.PSYCHOSIS. - Plan Plan: CONTINUE ON CURRENT MEDICATION AND DIET.
--- NOTE | 2016-11-18 22:32 | Progress Notes ---
DATE: 11/18/2016 SUBJECTIVE: Chart reviewed and the patient interviewed. Also discussed the patient's condition with the staff and reviewed records and labs. The patient is still confused and agitated. The patient also is still asking about when he is going to have the surgery, and still thinks that he is in the hospital in order to have surgery. Also, is still restless and he is still anxious. Also, personal hygiene is still poor. The patient is still suspicious and paranoid. ASSESSMENT: The patient is still psychotic. TREATMENT PLAN: Continue to monitor his behavior and his condition closely. Also, continue adjusting psychotropic medications and working on his psychosis. JOB# [id number]
--- NOTE | 2016-11-19 02:05 | Psychosocial Evaluation ---
DATE OF SERVICE: 11/16/2016 AGE: 61. SEX: Male. PHYSICIAN: Dr. Hurtado. CHIEF COMPLAINT: "I want my kidney stones out." HISTORY OF PRESENT ILLNESS: The patient is a 61-year-old male who was admitted to the hospital because of confusion and agitation. The patient has been extremely agitated and in irritable and angry mood. The patient also thinks that he came to the hospital because he was going to have surgery in his bladder and kidneys and his prostate. The patient is having difficulty understanding and following any directions. Also, is easily agitated and he is argumentative. He also has been having severe mood swings. PAST PSYCHIATRIC HISTORY: The patient has history of what seems to be bipolar versus schizoaffective disorder. He is currently on Depakote 500 mg at bedtime. PAST MEDICAL HISTORY: Noncontributory. FAMILY PSYCHIATRIC HISTORY: Not known. SOCIAL HISTORY: No known alcohol or street drug use. The patient has no children. He denies any smoking cigarettes or drinking alcohol. ALLERGIES: No known allergies. MENTAL STATUS EXAMINATION: The patient appears much older than stated age. Hard of hearing and difficulty to hear in spite of speaking loud. The patient seems to be preoccupied. He denies auditory or visual hallucination, but the patient is suspicious and delusional. The patient denies suicidal or homicidal ideations. The patient is alert and seems to be oriented to situation and place but not to the date or person. Unable to assess his memory at this time because of difficulty following instructions and because of his psychosis. PRIMARY DIAGNOSIS: Schizoaffective disorder, mixed type, with psychotic features. TREATMENT PLAN: We will continue Depakote and we will add Seroquel. We will monitor behavior closely. ESTIMATED LENGTH OF STAY: 7-10 days. THE PATIENT'S STRENGTHS AND WEAKNESSES: The patient's strengths, the patient seems to be in relatively fair health. Weaknesses are s ineffective coping, also his delusions and paranoia. AFTER DISCHARGE PLAN: Outpatient treatment and followup will continue as an outpatient. [facility]# [id number]
--- NOTE | 2016-11-19 02:09 | Progress Notes ---
DATE: 11/16/2016 SUBJECTIVE: Chart reviewed and the patient interviewed. Also discussed the patient's condition with the staff and reviewed records and labs. The patient continues to be confused and he is still agitated. The patient also continued to think that he is in the hospital in order to get surgery. The patient also is still disheveled and confused and isolative and wants to be left alone and stay by himself. Also, during my interview, the patient said "I'm taking too many pills at the same time." He could not give any details of what he meant by that. ASSESSMENT: The patient is still psychotic. TREATMENT PLAN: We will continue monitoring his behavior and his condition. Also, the patient continued to take Depakote 500 mg per day and Seroquel was added. We will continue same dose and continue to work on his psychosis, as well as his agitation. JOB# [id number]
[2016-11-19] MEDS: Betamethasone/Clotrimazole Cream 15 gm Tube TP SCH ×2 (08:50→16:45)
[2016-11-19] MEDS: Pantoprazole 40 mg EC Tab PO SCH (08:52)
[2016-11-19] MEDS: Potassium Chloride 10 mEq ER Tab PO SCH (08:52)
--- NOTE | 2016-11-19 19:50 | Internal Medicine Prog Note ---
Internal Medicine Subjective - Subjective Service Date: 11/19/16 Patient seen and examined:: without staff Patient is:: awake, in bed, talking Per staff patient has:: no adverse event (HE FEELS BETTER,NO COMPLAINTS.) Internal Medicine Objective - Results Result Diagrams: 11/13/16 22:30 11/13/16 22:30 Recent Labs: Laboratory Last Values WBC 6.2 Th/cmm (4.8-10.8) D 11/13/16: RBC 4.86 Mil/cmm (4.30-5.70) 11/13/16 22:30 Hgb 14.0 gm/dL (12-16) 11/13/16: Hct 43.5 % (41.0-60) 11/13/16: MCV 89.4 fl (80-99) 11/13/16 22: MCH 28.9 pg (26.0-30.0) 11/13/16: MCHC Differential 32.3 pg (28.0-36.0) 11/13/16: RDW 15.0 % (11.5-20.0) 11/13/16 22: Plt Count 261 Th/cmm (150-400) 11/13/16 22:30 MPV 7.9 fl 11/13/16 22:30 Neutrophils % 65.0 % (40.0-80.0) 11/13/16 22:30 Lymphocytes % 21.2 % (20.0-50.0) 11/13/16: Monocytes % 8.3 % (2.0-10.0) 11/13/16: Eosinophils % 1.8 % (0.0-5.0) 11/13/16 22: Basophils % 3.7 % (0.0-2.0) H 11/13/16 22:30 Sodium 139 mEq/L (136-145) 11/13/16 22:30 Potassium 3.5 mEq/L (3.5-5.1) 11/13/16 22:30 Chloride 113 mEq/L (98-107) H 11/13/16 22:30 Carbon Dioxide 20.9 mEq/L (21.0-31.0) L 11/13/16: Anion Gap 8.6 (7.0-16.0) 11/13/16 22:30 BUN 18 mg/dL (7-25) 11/13/16 22:30 Creatinine 1.0 mg/dL (0.7-1.3) 11/13/16 22:30 Est GFR ( Amer) > 60.0 ml/min (>90) 11/13/16 22:30 Est GFR (Non-Af Amer) > 60.0 ml/min 11/13/16 22:30 BUN/Creatinine Ratio 18.0 11/13/16 22:30 Glucose 99 mg/dL (70-105) 11/13/16 22:30 Calcium 8.4 mg/dL (8.6-10.3) L 11/13/16 22:30 TSH 1.99 uIU/ml (0.34-5.60) 11/13/16 22:30 Urine Source RANDOM 11/13/16 22:20 Urine Color YELLOW 11/13/16 22:20 Urine Clarity CLEAR (CLEAR) 11/13/16 22:20 Urine pH 6.0 (4.6 - 8.0) 11/13/16 22:20 Ur Specific [place] 1.025 (1.005-1.030) 11/13/16 22:20 Urine Protein NEGATIVE mg/dL (NEGATIVE) 11/13/16 22:20 Urine Glucose (UA) NEGATIVE mg/dL (NEGATIVE) 11/13/16 22:20 Urine Ketones NEGATIVE mg/dL (NEGATIVE) 11/13/16 22:20 Urine Blood NEGATIVE (NEGATIVE) 11/13/16 22:20 Urine Nitrate NEGATIVE (NEGATIVE) 11/13/16 22:20 Urine Bilirubin NEGATIVE (NEGATIVE) 11/13/16 22:20 Urine Urobilinogen 0.2 E.U./dL (0.2 - 1.0) 11/13/16 22:20 Ur Leukocyte Esterase NEGATIVE (NEGATIVE) 11/13/16 22:20 Urine RBC 0-2 /hpf (0-5) H 11/13/16 22:20 Urine WBC 0-2 /hpf (0-5) 11/13/16 22:20 Ur Epithelial Cells OCCASIONAL /lpf (FEW) 11/13/16 22:20 Urine Bacteria OCCASIONAL /hpf (NONE SEEN) 11/13/16 22:20 Valproic Acid < 10.0 ug/mL (50.0-100.0) L 11/13/16 22:30 RPR NONREACTIVE (NONREACTIVE) 11/13/16 22:30 - Physical Exam Vitals and I&O: Vital Signs Temp 98.2 F 11/19/16 06:08 Pulse 61 11/19/16 06:08 Resp 18 11/19/16 06:08 BP 96/60 11/19/16 08:51 Pulse Ox 94 11/19/16 06:08 Intake & Output 11/19/16 11/19/16 11/20/16 06:59 18:59 06:59 Intake Total 240 Balance 240 Intake: Oral 240 Other: # Voids 3 # Bowel Movements 0 Active Medications: Current Medications Acetaminophen (Tylenol) 650 mg PO Q6H PRN PRN Reason: Mild Pain/Headache/T above 101 Stop: 01/12/17 23:18 Last Admin: 11/17/16 03:58 Dose: 650 mg Al Hydrox/Mg Hydrox/Simethicone (Maalox) 30 ml PO Q6H PRN PRN Reason: Dyspepsia Stop: 01/12/17 23:18 Last Admin: 11/15/16 14:32 Dose: 30 ml Baclofen (Lioresal) 10 mg PO BID [facility] Stop: 01/13/17 08:59 Last Admin: 11/19/16 16:46 Dose: 10 mg Betamethasone/Clotrimazole (Lotrisone Cream) 1 appl TP BID [facility] Stop: 01/13/17 08:59 Last Admin: 11/19/16 16:45 Dose: 1 appl Divalproex Sodium (Depakote Dr) 500 mg PO HS [facility] PRN Reason: Protocol Stop: 01/13/17 20:59 Last Admin: 11/18/16 21:10 Dose: 500 mg Docusate Sodium (Colace) 100 mg PO DAILY [facility] Stop: 01/13/17 08:59 Last Admin: 11/19/16 08:51 Dose: 100 mg Furosemide (Lasix) 20 mg PO DAILY [facility] Stop: 01/13/17 08:59 Last Admin: 11/19/16 08:51 Dose: Not Given Lorazepam (Ativan) 1 mg PO Q6H PRN; Protocol PRN Reason: Anxiety/Agitation Stop: 01/12/17 23:18 Pantoprazole Sodium (Protonix) 40 mg PO DAILY [facility] Stop: 01/13/17 08:59 Last Admin: 11/19/16 08:52 Dose: 40 mg Potassium Chloride (Klor-Con) 10 meq PO DAILY [facility] Stop: 01/13/17 08:59 Last Admin: 11/19/16 08:52 Dose: 10 meq Quetiapine Fumarate (Seroquel) 200 mg PO HS [facility] PRN Reason: Protocol Stop: 01/16/17 20:59 Last Admin: 11/18/16 21:10 Dose: 200 mg Simvastatin (Zocor) 20 mg PO HS [facility] Stop: 01/13/17 20:59 Last Admin: 11/18/16 21:11 Dose: 20 mg Sodium Phosphate (Fleet Enema) 135 ml RC DAILY PRN PRN Reason: Constipation Stop: 01/12/17 23:18 Tamsulosin HCl (Flomax) 0.4 mg PO DAILY [facility] Stop: 01/13/17 08:59 Last Admin: 11/19/16 08:53 Dose: 0.4 mg Temazepam (Restoril) 30 mg PO HS [facility] Stop: 01/12/17 23:44 Last Admin: 11/18/16 21:10 Dose: 30 mg Trazodone HCl (Desyrel) 100 mg PO HS [facility] Stop: 01/13/17 20:59 Last Admin: 11/18/16 21:10 Dose: 100 mg General: demented HEENT: NC/AT, PERRLA, EOMI, anicteric sclerae, throat clear Neck: Supple, No JVD, No thyromegaly, +2 carotid pulse wo bruit Lungs: CTAB Cardiovascular: RRR, Normal S1, Normal S2, without murmur Abdomen: soft, non-tender, non-distended Extremities: clear Neurological: gait stable - Procedures Procedures: Procedures Procedure Code Date ABDOMEN SURGERY PROCEDURE 87871 07/30/99 CHOLECYSTECTOMY 51.22 07/30/99 DIAGNOSTIC COLONOSCOPY 66470 10/09/99 DILATION OF INTESTINE 46.85 10/09/99 DX ULTRASOUND-ABDOMEN 88.76 07/30/99 EGD BIOPSY SINGLE/MULTIPLE 36393 08/27/99 ELECTROCARDIOGRAM 89.52 10/09/99 ELECTROCARDIOGRAM COMPLETE 78348 10/09/99 ENDOSC RETROGRADE CHOLANGIOPANCREATOGRAPHY [ERCP] 51.10 07/30/99 ERCP W/SPECIMEN COLLECTION 12740 07/30/99 ESOPHAGOGASTRODUODENOSCOPY [EGD] W/CLOSED BIOPSY 45.16 08/27/99 OTH LYSIS-PERITONEAL ADHES 54.59 07/30/99 OTHER GROUP THERAPY 94.44 07/06/14 REMOVAL OF GALLBLADDER 15739 07/30/99 US EXAM ABDOM COMPLETE 92757 07/30/99 Internal Medicine Assmt/Plan - Assessment Assessment: 1.HYPERLIPIDEMEA. 2.BPH. 3.EDINSON. 4.PSYCHOSIS. - Plan Plan: CONTINUE ON CURRENT MEDICATION AND DIET.
--- NOTE | 2016-11-19 20:54 | Progress Notes ---
DATE: 11/19/2016 SUBJECTIVE: Chart reviewed and the patient interviewed. Also discussed the patient's condition with the staff and reviewed records and labs. The patient continued to be delusional and is still paranoid. The patient also still thinks that he is in the hospital in order to have surgery. He also is still resisting care and isolative and withdrawn and interacting minimally with others. He also seems to be preoccupied. On the other hand, the patient is cooperative with his treatment and he is compliant with taking his medications with no side effects. ASSESSMENT: The patient is still psychotic and is still depressed. TREATMENT PLAN: We will continue monitoring his behavior and his condition closely. Also, continue adjusting psychotropic medications and continue to follow up. [facility]# [id number]
[2016-11-20] MEDS: Pantoprazole 40 mg EC Tab PO SCH (08:19)
[2016-11-20] MEDS: Potassium Chloride 10 mEq ER Tab PO SCH (08:19)
[2016-11-20] MEDS: Betamethasone/Clotrimazole Cream 15 gm Tube TP SCH ×2 (08:20→16:12)
--- NOTE | 2016-11-20 10:39 | Internal Medicine Prog Note ---
Internal Medicine Subjective - Subjective Service Date: 11/20/16 Patient seen and examined:: without staff (HE FELS BETTER.) Patient is:: awake, in bed, talking Per staff patient has:: no adverse event (HE FEELS BETTER,NO COMPLAINTS.) Internal Medicine Objective - Results Result Diagrams: 11/13/16 22:30 11/13/16 22:30 Recent Labs: Laboratory Last Values WBC 6.2 Th/cmm (4.8-10.8) D 11/13/16 22:30 RBC 4.86 Mil/cmm (4.30-5.70) 11/13/16 22:30 Hgb 14.0 gm/dL (12-16) 11/13/16 22:30 Hct 43.5 % (41.0-60) 11/13/16 22:30 MCV 89.4 fl (80-99) 11/13/16 22:30 MCH 28.9 pg (26.0-30.0) 11/13/16 22: MCHC Differential 32.3 pg (28.0-36.0) 11/13/16 22:30 RDW 15.0 % (11.5-20.0) 11/13/16 22:30 Plt Count 261 Th/cmm (150-400) 11/13/16 22:30 MPV 7.9 fl 11/13/16 22:30 Neutrophils % 65.0 % (40.0-80.0) 11/13/16 22:30 Lymphocytes % 21.2 % (20.0-50.0) 11/13/16 22: Monocytes % 8.3 % (2.0-10.0) 11/13/16 22:30 Eosinophils % 1.8 % (0.0-5.0) 11/13/16 22:30 Basophils % 3.7 % (0.0-2.0) H 11/13/16 22:30 Sodium 139 mEq/L (136-145) 11/13/16 22:30 Potassium 3.5 mEq/L (3.5-5.1) 11/13/16 22:30 Chloride 113 mEq/L (98-107) H 11/13/16 22:30 Carbon Dioxide 20.9 mEq/L (21.0-31.0) L 11/13/16 22:30 Anion Gap 8.6 (7.0-16.0) 11/13/16 22:30 BUN 18 mg/dL (7-25) 11/13/16 22:30 Creatinine 1.0 mg/dL (0.7-1.3) 11/13/16 22:30 Est GFR ( Amer) > 60.0 ml/min (>90) 11/13/16 22:30 Est GFR (Non-Af Amer) > 60.0 ml/min 11/13/16 22:30 BUN/Creatinine Ratio 18.0 11/13/16 22:30 Glucose 99 mg/dL (70-105) 11/13/16 22:30 Calcium 8.4 mg/dL (8.6-10.3) L 11/13/16 22:30 TSH 1.99 uIU/ml (0.34-5.60) 11/13/16 22:30 Urine Source RANDOM 11/13/16 22:20 Urine Color YELLOW 11/13/16 22:20 Urine Clarity CLEAR (CLEAR) 11/13/16 22:20 Urine pH 6.0 (4.6 - 8.0) 11/13/16 22:20 Ur Specific [place] 1.025 (1.005-1.030) 11/13/16 22:20 Urine Protein NEGATIVE mg/dL (NEGATIVE) 11/13/16 22:20 Urine Glucose (UA) NEGATIVE mg/dL (NEGATIVE) 11/13/16 22:20 Urine Ketones NEGATIVE mg/dL (NEGATIVE) 11/13/16 22:20 Urine Blood NEGATIVE (NEGATIVE) 11/13/16 22:20 Urine Nitrate NEGATIVE (NEGATIVE) 11/13/16 22:20 Urine Bilirubin NEGATIVE (NEGATIVE) 11/13/16 22:20 Urine Urobilinogen 0.2 E.U./dL (0.2 - 1.0) 11/13/16 22:20 Ur Leukocyte Esterase NEGATIVE (NEGATIVE) 11/13/16 22:20 Urine RBC 0-2 /hpf (0-5) H 11/13/16 22:20 Urine WBC 0-2 /hpf (0-5) 11/13/16 22:20 Ur Epithelial Cells OCCASIONAL /lpf (FEW) 11/13/16 22:20 Urine Bacteria OCCASIONAL /hpf (NONE SEEN) 11/13/16 22:20 Valproic Acid < 10.0 ug/mL (50.0-100.0) L 11/13/16 22:30 RPR NONREACTIVE (NONREACTIVE) 11/13/16 22:30 - Physical Exam Vitals and I&O: Vital Signs Temp 97.5 F 11/20/16 06:36 Pulse 60 11/20/16 06:36 Resp 20 11/20/16 06:36 BP 94/68 11/20/16 08:19 Pulse Ox 100 11/20/16 06:36 Intake & Output 11/19/16 11/20/16 11/20/16 18:59 06:59 18:59 Intake Total 360 Balance 360 Intake: Oral 360 Other: # Voids 3 Active Medications: Current Medications Acetaminophen (Tylenol) 650 mg PO Q6H PRN PRN Reason: Mild Pain/Headache/T above 101 Stop: 01/12/17 23:18 Last Admin: 11/17/16 03:58 Dose: 650 mg Al Hydrox/Mg Hydrox/Simethicone (Maalox) 30 ml PO Q6H PRN PRN Reason: Dyspepsia Stop: 01/12/17 23:18 Last Admin: 11/15/16 14:32 Dose: 30 ml Baclofen (Lioresal) 10 mg PO BID JANEY Stop: 01/13/17 08:59 Last Admin: 11/20/16 08:19 Dose: 10 mg Betamethasone/Clotrimazole (Lotrisone Cream) 1 appl TP BID JNAEY Stop: 01/13/17 08:59 Last Admin: 11/20/16 08:20 Dose: 1 appl Divalproex Sodium (Depakote Dr) 500 mg PO HS JANEY PRN Reason: Protocol Stop: 01/13/17 20:59 Last Admin: 11/19/16 20:29 Dose: 500 mg Docusate Sodium (Colace) 100 mg PO DAILY JANEY Stop: 01/13/17 08:59 Last Admin: 11/20/16 08:19 Dose: Not Given Furosemide (Lasix) 20 mg PO DAILY JANEY Stop: 01/13/17 08:59 Last Admin: 11/20/16 08:19 Dose: 20 mg Lorazepam (Ativan) 1 mg PO Q6H PRN; Protocol PRN Reason: Anxiety/Agitation Stop: 01/12/17 23:18 Pantoprazole Sodium (Protonix) 40 mg PO DAILY [facility] Stop: 01/13/17 08:59 Last Admin: 11/20/16 08:19 Dose: 40 mg Potassium Chloride (Klor-Con) 10 meq PO DAILY JANEY Stop: 01/13/17 08:59 Last Admin: 11/20/16 08:19 Dose: 10 meq Quetiapine Fumarate (Seroquel) 200 mg PO HS [facility] PRN Reason: Protocol Stop: 01/16/17 20:59 Last Admin: 11/19/16 20:28 Dose: 200 mg Simvastatin (Zocor) 20 mg PO HS [facility] Stop: 01/13/17 20:59 Last Admin: 11/19/16 20:28 Dose: 20 mg Sodium Phosphate (Fleet Enema) 135 ml RC DAILY PRN PRN Reason: Constipation Stop: 01/12/17 23:18 Tamsulosin HCl (Flomax) 0.4 mg PO DAILY [facility] Stop: 01/13/17 08:59 Last Admin: 11/20/16 08:19 Dose: 0.4 mg Temazepam (Restoril) 30 mg PO HS [facility] Stop: 01/12/17 23:44 Last Admin: 11/19/16 20:28 Dose: 30 mg Trazodone HCl (Desyrel) 100 mg PO HS [facility] Stop: 01/13/17 20:59 Last Admin: 11/19/16 20:28 Dose: 100 mg General: demented HEENT: NC/AT, PERRLA, EOMI, anicteric sclerae, throat clear Neck: Supple, No JVD, No thyromegaly, +2 carotid pulse wo bruit Lungs: CTAB Cardiovascular: RRR, Normal S1, Normal S2, without murmur Abdomen: soft, non-tender, non-distended Extremities: clear Neurological: gait stable - Procedures Procedures: Procedures Procedure Code Date ABDOMEN SURGERY PROCEDURE 56438 07/30/99 CHOLECYSTECTOMY 51.22 07/30/99 DIAGNOSTIC COLONOSCOPY 39490 10/09/99 DILATION OF INTESTINE 46.85 10/09/99 DX ULTRASOUND-ABDOMEN 88.76 07/30/99 EGD BIOPSY SINGLE/MULTIPLE 46134 08/27/99 ELECTROCARDIOGRAM 89.52 10/09/99 ELECTROCARDIOGRAM COMPLETE 69961 10/09/99 ENDOSC RETROGRADE CHOLANGIOPANCREATOGRAPHY [ERCP] 51.10 07/30/99 ERCP W/SPECIMEN COLLECTION 12720 07/30/99 ESOPHAGOGASTRODUODENOSCOPY [EGD] W/CLOSED BIOPSY 45.16 08/27/99 OTH LYSIS-PERITONEAL ADHES 54.59 07/30/99 OTHER GROUP THERAPY 94.44 07/06/14 REMOVAL OF GALLBLADDER 10434 07/30/99 US EXAM ABDOM COMPLETE 81928 07/30/99 Internal Medicine Assmt/Plan - Assessment Assessment: 1.HYPERLIPIDEMEA. 2.BPH. 3.EDINSON. 4.PSYCHOSIS. - Plan Plan: CONTINUE ON CURRENT MEDICATION AND DIET.
--- NOTE | 2016-11-20 21:41 | Progress Notes ---
DATE: 11/20/2016 SUBJECTIVE: Chart reviewed and the patient interviewed. Also, discussed the patient's condition with the staff and reviewed records and labs. The patient is still severely anxious and he is still slightly confused and suspicious. The patient also is still paranoid and talking about having surgery and waiting to have surgery done. The patient also is still restless and is still isolative and withdrawn. Also, personal hygiene is still poor. Otherwise, the patient is compliant with taking his medications with no side effects of medications. ASSESSMENT: The patient is still psychotic and agitated. TREATMENT PLAN: We will continue to monitor behavior and condition closely. Also, continue to follow up. JOB# [id number]
[2016-11-21] MEDS: Pantoprazole 40 mg EC Tab PO SCH (08:50)
[2016-11-21] MEDS: Betamethasone/Clotrimazole Cream 15 gm Tube TP SCH ×2 (08:55→16:05)
[2016-11-21] MEDS: Potassium Chloride 10 mEq ER Tab PO SCH (09:50)
--- NOTE | 2016-11-21 10:56 | Progress Notes ---
DATE: 11/21/2016 SUBJECTIVE: Chart reviewed and the patient interviewed. Also discussed the patient's condition with the staff and reviewed records and labs. The patient is still depressed and withdrawn. The patient also is still confused. The patient also is still delusional and thinks that he is in the hospital in order to have surgery and when tried to redirect him, he gets angry and agitated. The patient also still tends to isolate himself and withdrawn and angry and easily agitated. Otherwise, the patient is compliant with taking his medications with no side effects of medications. ASSESSMENT: The patient is still psychotic and is still depressed. TREATMENT PLAN: We will continue monitoring his behavior and his condition closely. Also, we will increase Seroquel to 250 mg at bedtime. Also, continue to work on his irritability and his confusion and we will continue to follow up. Also, we will get a Depakote blood level. Depakote blood level that was done upon admission was less than 10 and we will repeat blood level. [facility]# [id number]
--- NOTE | 2016-11-21 20:13 | Internal Medicine Prog Note ---
Internal Medicine Subjective - Subjective Service Date: 11/21/16 Patient seen and examined:: without staff Patient is:: awake, in bed, talking Per staff patient has:: no adverse event (HE FEELS BETTER,NO COMPLAINTS.) Internal Medicine Objective - Results Result Diagrams: 11/13/16 22:30 11/13/16 22:30 Recent Labs: Laboratory Last Values WBC 6.2 Th/cmm (4.8-10.8) D 11/13/16: RBC 4.86 Mil/cmm (4.30-5.70) 11/13/16 22:30 Hgb 14.0 gm/dL (12-16) 11/13/16: Hct 43.5 % (41.0-60) 11/13/16: MCV 89.4 fl (80-99) 11/13/16 22: MCH 28.9 pg (26.0-30.0) 11/13/16: MCHC Differential 32.3 pg (28.0-36.0) 11/13/16: RDW 15.0 % (11.5-20.0) 11/13/16: Plt Count 261 Th/cmm (150-400) 11/13/16 22:30 MPV 7.9 fl 11/13/16 22:30 Neutrophils % 65.0 % (40.0-80.0) 11/13/16 22:30 Lymphocytes % 21.2 % (20.0-50.0) 11/13/16: Monocytes % 8.3 % (2.0-10.0) 11/13/16: Eosinophils % 1.8 % (0.0-5.0) 11/13/16 22: Basophils % 3.7 % (0.0-2.0) H 11/13/16 22:30 Sodium 139 mEq/L (136-145) 11/13/16 22:30 Potassium 3.5 mEq/L (3.5-5.1) 11/13/16 22:30 Chloride 113 mEq/L (98-107) H 11/13/16 22:30 Carbon Dioxide 20.9 mEq/L (21.0-31.0) L 11/13/16: Anion Gap 8.6 (7.0-16.0) 11/13/16 22:30 BUN 18 mg/dL (7-25) 11/13/16 22:30 Creatinine 1.0 mg/dL (0.7-1.3) 11/13/16 22:30 Est GFR ( Amer) > 60.0 ml/min (>90) 11/13/16 22:30 Est GFR (Non-Af Amer) > 60.0 ml/min 11/13/16 22:30 BUN/Creatinine Ratio 18.0 11/13/16 22:30 Glucose 99 mg/dL (70-105) 11/13/16 22:30 Calcium 8.4 mg/dL (8.6-10.3) L 11/13/16 22:30 TSH 1.99 uIU/ml (0.34-5.60) 11/13/16 22:30 Urine Source RANDOM 11/13/16 22:20 Urine Color YELLOW 11/13/16 22:20 Urine Clarity CLEAR (CLEAR) 11/13/16 22:20 Urine pH 6.0 (4.6 - 8.0) 11/13/16 22:20 Ur Specific [place] 1.025 (1.005-1.030) 11/13/16 22:20 Urine Protein NEGATIVE mg/dL (NEGATIVE) 11/13/16 22:20 Urine Glucose (UA) NEGATIVE mg/dL (NEGATIVE) 11/13/16 22:20 Urine Ketones NEGATIVE mg/dL (NEGATIVE) 11/13/16 22:20 Urine Blood NEGATIVE (NEGATIVE) 11/13/16 22:20 Urine Nitrate NEGATIVE (NEGATIVE) 11/13/16 22:20 Urine Bilirubin NEGATIVE (NEGATIVE) 11/13/16 22:20 Urine Urobilinogen 0.2 E.U./dL (0.2 - 1.0) 11/13/16 22:20 Ur Leukocyte Esterase NEGATIVE (NEGATIVE) 11/13/16 22:20 Urine RBC 0-2 /hpf (0-5) H 11/13/16 22:20 Urine WBC 0-2 /hpf (0-5) 11/13/16 22:20 Ur Epithelial Cells OCCASIONAL /lpf (FEW) 11/13/16 22:20 Urine Bacteria OCCASIONAL /hpf (NONE SEEN) 11/13/16 22:20 Valproic Acid < 10.0 ug/mL (50.0-100.0) L 11/13/16 22:30 RPR NONREACTIVE (NONREACTIVE) 11/13/16 22:30 - Physical Exam Vitals and I&O: Vital Signs Temp 97.9 F 11/21/16 14:00 Pulse 73 11/21/16 14:00 Resp 20 11/21/16 14:00 BP 104/67 11/21/16 14:00 Pulse Ox 97 11/21/16 14:00 Intake & Output 11/21/16 11/21/16 11/22/16 06:59 18:59 06:59 Intake Total 120 1100 Balance 120 1100 Intake: Oral 120 1100 Other: # Voids 3 3 # Bowel Movements 1 Active Medications: Current Medications Acetaminophen (Tylenol) 650 mg PO Q6H PRN PRN Reason: Mild Pain/Headache/T above 101 Stop: 01/12/17 23:18 Last Admin: 11/17/16 03:58 Dose: 650 mg Al Hydrox/Mg Hydrox/Simethicone (Maalox) 30 ml PO Q6H PRN PRN Reason: Dyspepsia Stop: 01/12/17 23:18 Last Admin: 11/15/16 14:32 Dose: 30 ml Baclofen (Lioresal) 10 mg PO BID COUNTS [facility]CLUDE 234 BEDS AT [facility] Stop: 01/13/17 08:59 Last Admin: 11/21/16 16:05 Dose: 10 mg Betamethasone/Clotrimazole (Lotrisone Cream) 1 appl TP BID JANEY Stop: 01/13/17 08:59 Last Admin: 11/21/16 16:05 Dose: 1 appl Divalproex Sodium (Depakote Dr) 500 mg PO HS JANEY PRN Reason: Protocol Stop: 01/13/17 20:59 Last Admin: 11/20/16 20:56 Dose: 500 mg Docusate Sodium (Colace) 100 mg PO DAILY JANEY Stop: 01/13/17 08:59 Last Admin: 11/21/16 08:50 Dose: 100 mg Furosemide (Lasix) 20 mg PO DAILY JANEY Stop: 01/13/17 08:59 Last Admin: 11/21/16 08:51 Dose: 20 mg Lorazepam (Ativan) 1 mg PO Q6H PRN; Protocol PRN Reason: Anxiety/Agitation Stop: 01/12/17 23:18 Pantoprazole Sodium (Protonix) 40 mg PO DAILY COUNTS INCLUDE 234 BEDS AT [facility] Stop: 01/13/17 08:59 Last Admin: 11/21/16 08:50 Dose: 40 mg Potassium Chloride (Klor-Con) 10 meq PO DAILY JANEY Stop: 01/13/17 08:59 Last Admin: 11/21/16 09:50 Dose: Not Given Quetiapine Fumarate 200 mg/ (Quetiapine Fumarate 50 mg) 250 mg PO HS COUNTS INCLUDE 234 BEDS AT [facility] Stop: 01/20/17 20:59 Simvastatin (Zocor) 20 mg PO HS COUNTS INCLUDE 234 BEDS AT [facility] Stop: 01/13/17 20:59 Last Admin: 11/20/16 20:55 Dose: 20 mg Sodium Phosphate (Fleet Enema) 135 ml RC DAILY PRN PRN Reason: Constipation Stop: 01/12/17 23:18 Tamsulosin HCl (Flomax) 0.4 mg PO DAILY COUNTS INCLUDE 234 BEDS AT [facility] Stop: 01/13/17 08:59 Last Admin: 11/21/16 08:50 Dose: 0.4 mg Temazepam (Restoril) 30 mg PO [facility] Stop: 01/12/17 23:44 Last Admin: 11/20/16 20:55 Dose: 30 mg Trazodone HCl (Desyrel) 100 mg PO HS COUNTS INCLUDE 234 BEDS AT [facility] Stop: 01/13/17 20:59 Last Admin: 11/20/16 20:54 Dose: 100 mg General: demented HEENT: NC/AT, PERRLA, EOMI, anicteric sclerae, throat clear Neck: Supple, No JVD, No thyromegaly, +2 carotid pulse wo bruit Lungs: CTAB Cardiovascular: RRR, Normal S1, Normal S2, without murmur Abdomen: soft, non-tender, non-distended Extremities: clear Neurological: gait stable - Procedures Procedures: Procedures Procedure Code Date ABDOMEN SURGERY PROCEDURE 50421 07/30/99 CHOLECYSTECTOMY 51.22 07/30/99 DIAGNOSTIC COLONOSCOPY 31488 10/09/99 DILATION OF INTESTINE 46.85 10/09/99 DX ULTRASOUND-ABDOMEN 88.76 07/30/99 EGD BIOPSY SINGLE/MULTIPLE 82512 08/27/99 ELECTROCARDIOGRAM 89.52 10/09/99 ELECTROCARDIOGRAM COMPLETE 16727 10/09/99 ENDOSC RETROGRADE CHOLANGIOPANCREATOGRAPHY [ERCP] 51.10 07/30/99 ERCP W/SPECIMEN COLLECTION 04054 07/30/99 ESOPHAGOGASTRODUODENOSCOPY [EGD] W/CLOSED BIOPSY 45.16 08/27/99 OTH LYSIS-PERITONEAL ADHES 54.59 07/30/99 OTHER GROUP THERAPY 94.44 07/06/14 REMOVAL OF GALLBLADDER 84992 07/30/99 US EXAM ABDOM COMPLETE 86759 07/30/99 Internal Medicine Assmt/Plan - Assessment Assessment: 1.HYPERLIPIDEMEA. 2.BPH. 3.EDINSON. 4.PSYCHOSIS. - Plan Plan: CONTINUE ON CURRENT MEDICATION AND DIET. Nutritional Asmnt/Malnutr-PDOC - Dietary Evaluation Malnutrition Findings (Please click <Entered> for more info): Nutritional Asmnt/Malnutrition Start: 11/20/16 17: 09 Text: Status: Complete Freq: Document 11/20/16 17:09 CHHAYA (Rec: 11/20/16 17:19 [email or web address]) Nutritional Asmnt/Malnutrition Patient General Information Nutritional Screening Diagnosis Diagnosis Schizoaffective disorder mixed type with psychotic features Pertinent Medical Hx/Surgical Hx Hyperlipidemia, GERD, chronic pain, lymphedema of lower extremities, psychosis, __ urinary incontinence, benign prostatic hypertrophy Subjective Information 61 year old male. Spoke to pt resting in bed, pt was pleasant. Pt reported undergone gastric bypass for weight loss in 1977, unable to tolerate orange juice (causes diarrhea) due to this. Pt denied other foods that may cause discomfort, pt denied GI discomfort at this time. Pt reported no recent weight changes. Unable to obtain current weight due to bedscale malfunction. No muscle fat wasting noted. Teeth intact. Avg PO intake 75-100% of meals since adm, meeting nutritional needs. Current Diet Order/ Nutrition Support Regular Pertinent Medications Colace, Lasix, Protonix, Klor- Con, Seroquel, Fleet Enema Pertinent Labs Reviewed Nutritional Hx/Data Height 1.83 m Height (Calculated Centimeters) 182.9 Current Weight (lbs) 72.575 kg Weight (Calculated Kilograms) 72.6 Weight (Calculated Grams) 08922.8 [place] Body Weight 178 Recent Weight Change No Weight Status Approriate GI Symptoms Food Allergies No Skin Integrity/Comment: [place]. Skin intact. Current %PO Good (75-100%) Estimated Nutritional Goals BEE in Kcals: Using Current wt Calories/Kcals/Kg CBW 160lb/72.7kg Kcals Calculated 1818-2181kcal (25-30kcla/kg) Protein: Using Current wt Protein Calculated 73g (1g/kg) Fluid: ml 1818-2181ml (1ml/kcal) Nutritional Problem 1. Problem Problem No nutritional problem at this time. Intervention/Recommendation Comments 1. Continue with current diet order. Avg PO intake is adequate. Expected Outcomes/Goals Expected Outcomes/Goals 1. PO intake continue to meet at least 75% of estimated nutritioal needs.
[2016-11-22] MEDS: Pantoprazole 40 mg EC Tab PO SCH (08:40)
[2016-11-22] MEDS: Potassium Chloride 10 mEq ER Tab PO SCH (08:41)
--- NOTE | 2016-11-22 17:28 | Internal Medicine Prog Note ---
Internal Medicine Subjective - Subjective Service Date: 11/22/16 Patient seen and examined:: with staff Patient is:: awake, in bed, talking Per staff patient has:: no adverse event (HE FEELS BETTER,NO COMPLAINTS.) Internal Medicine Objective - Results Result Diagrams: 11/13/16 22:30 11/13/16 22:30 Recent Labs: Laboratory Last Values WBC 6.2 Th/cmm (4.8-10.8) D 11/13/16: RBC 4.86 Mil/cmm (4.30-5.70) 11/13/16 22: Hgb 14.0 gm/dL (12-16) 11/13/16: Hct 43.5 % (41.0-60) 11/13/16: MCV 89.4 fl (80-99) 11/13/16 22: MCH 28.9 pg (26.0-30.0) 11/13/16: MCHC Differential 32.3 pg (28.0-36.0) 11/13/16: RDW 15.0 % (11.5-20.0) 11/13/16: Plt Count 261 Th/cmm (150-400) 11/13/16 22: MPV 7.9 fl 11/13/16 22:30 Neutrophils % 65.0 % (40.0-80.0) 11/13/16 22:30 Lymphocytes % 21.2 % (20.0-50.0) 11/13/16: Monocytes % 8.3 % (2.0-10.0) 11/13/16: Eosinophils % 1.8 % (0.0-5.0) 11/13/16: Basophils % 3.7 % (0.0-2.0) H 11/13/16 22:30 Sodium 139 mEq/L (136-145) 11/13/16 22:30 Potassium 3.5 mEq/L (3.5-5.1) 11/13/16 22:30 Chloride 113 mEq/L (98-107) H 11/13/16 22:30 Carbon Dioxide 20.9 mEq/L (21.0-31.0) L 11/13/16: Anion Gap 8.6 (7.0-16.0) 11/13/16 22:30 BUN 18 mg/dL (7-25) 11/13/16 22:30 Creatinine 1.0 mg/dL (0.7-1.3) 11/13/16 22:30 Est GFR ( Amer) > 60.0 ml/min (>90) 11/13/16 22:30 Est GFR (Non-Af Amer) > 60.0 ml/min 11/13/16 22:30 BUN/Creatinine Ratio 18.0 11/13/16 22:30 Glucose 99 mg/dL (70-105) 11/13/16 22:30 Calcium 8.4 mg/dL (8.6-10.3) L 11/13/16 22:30 TSH 1.99 uIU/ml (0.34-5.60) 11/13/16 22:30 Urine Source RANDOM 11/13/16 22:20 Urine Color YELLOW 11/13/16 22:20 Urine Clarity CLEAR (CLEAR) 11/13/16 22:20 Urine pH 6.0 (4.6 - 8.0) 11/13/16 22:20 Ur Specific [place] 1.025 (1.005-1.030) 11/13/16 22:20 Urine Protein NEGATIVE mg/dL (NEGATIVE) 11/13/16 22:20 Urine Glucose (UA) NEGATIVE mg/dL (NEGATIVE) 11/13/16 22:20 Urine Ketones NEGATIVE mg/dL (NEGATIVE) 11/13/16 22:20 Urine Blood NEGATIVE (NEGATIVE) 11/13/16 22:20 Urine Nitrate NEGATIVE (NEGATIVE) 11/13/16 22:20 Urine Bilirubin NEGATIVE (NEGATIVE) 11/13/16 22:20 Urine Urobilinogen 0.2 E.U./dL (0.2 - 1.0) 11/13/16 22:20 Ur Leukocyte Esterase NEGATIVE (NEGATIVE) 11/13/16 22:20 Urine RBC 0-2 /hpf (0-5) H 11/13/16 22:20 Urine WBC 0-2 /hpf (0-5) 11/13/16 22:20 Ur Epithelial Cells OCCASIONAL /lpf (FEW) 11/13/16 22:20 Urine Bacteria OCCASIONAL /hpf (NONE SEEN) 11/13/16 22:20 Valproic Acid < 10.0 ug/mL (50.0-100.0) L 11/13/16 22:30 RPR NONREACTIVE (NONREACTIVE) 11/13/16 22:30 - Physical Exam Vitals and I&O: Vital Signs Temp 97.9 F 11/22/16 16:00 Pulse 71 11/22/16 16:00 Resp 18 11/22/16 16:00 BP 99/53 11/22/16 16:00 Pulse Ox 98 11/22/16 16:00 Intake & Output 11/21/16 11/22/16 11/22/16 18:59 06:59 18:59 Intake Total 1100 120 Balance 1100 120 Intake: Oral 1100 120 Other: # Voids 3 3 # Bowel Movements 1 Active Medications: Current Medications Acetaminophen (Tylenol) 650 mg PO Q6H PRN PRN Reason: Mild Pain/Headache/T above 101 Stop: 01/12/17 23:18 Last Admin: 11/17/16 03:58 Dose: 650 mg Al Hydrox/Mg Hydrox/Simethicone (Maalox) 30 ml PO Q6H PRN PRN Reason: Dyspepsia Stop: 01/12/17 23:18 Last Admin: 11/15/16 14:32 Dose: 30 ml Baclofen (Lioresal) 10 mg PO BID JANEY Stop: 01/13/17 08:59 Last Admin: 11/22/16 16:12 Dose: 10 mg Divalproex Sodium (Depakote Dr) 500 mg PO HS JANEY PRN Reason: Protocol Stop: 01/13/17 20:59 Last Admin: 11/21/16 21:15 Dose: 500 mg Docusate Sodium (Colace) 100 mg PO DAILY JANEY Stop: 01/13/17 08:59 Last Admin: 11/22/16 08:40 Dose: 100 mg Furosemide (Lasix) 20 mg PO DAILY JANEY Stop: 01/13/17 08:59 Last Admin: 11/22/16 08:41 Dose: Not Given Lorazepam (Ativan) 1 mg PO Q6H PRN; Protocol PRN Reason: Anxiety/Agitation Stop: 01/12/17 23:18 Pantoprazole Sodium (Protonix) 40 mg PO DAILY JANEY Stop: 01/13/17 08:59 Last Admin: 11/22/16 08:40 Dose: 40 mg Potassium Chloride (Klor-Con) 10 meq PO DAILY JANEY Stop: 01/13/17 08:59 Last Admin: 11/22/16 08:41 Dose: Not Given Quetiapine Fumarate 200 mg/ (Quetiapine Fumarate 50 mg) 250 mg PO HS [facility] Stop: 01/20/17 20:59 Last Admin: 11/21/16 21:16 Dose: 250 mg Simvastatin (Zocor) 20 mg PO HS JANEY Stop: 01/13/17 20:59 Last Admin: 11/21/16 21:15 Dose: 20 mg Sodium Phosphate (Fleet Enema) 135 ml RC DAILY PRN PRN Reason: Constipation Stop: 01/12/17 23:18 Tamsulosin HCl (Flomax) 0.4 mg PO DAILY JANEY Stop: 01/13/17 08:59 Last Admin: 11/22/16 08:40 Dose: 0.4 mg Temazepam (Restoril) 30 mg PO HS [facility] Stop: 01/12/17 23:44 Last Admin: 11/21/16 21:17 Dose: 30 mg Trazodone HCl (Desyrel) 100 mg PO HS [facility] Stop: 01/13/17 20:59 Last Admin: 11/21/16 21:15 Dose: 100 mg General: demented HEENT: NC/AT, PERRLA, EOMI, anicteric sclerae, throat clear Neck: Supple, No JVD, No thyromegaly, +2 carotid pulse wo bruit Lungs: CTAB Cardiovascular: RRR, Normal S1, Normal S2, without murmur Abdomen: soft, non-tender, non-distended Extremities: clear Neurological: gait stable - Procedures Procedures: Procedures Procedure Code Date ABDOMEN SURGERY PROCEDURE 62544 07/30/99 CHOLECYSTECTOMY 51.22 07/30/99 DIAGNOSTIC COLONOSCOPY 13594 10/09/99 DILATION OF INTESTINE 46.85 10/09/99 DX ULTRASOUND-ABDOMEN 88.76 07/30/99 EGD BIOPSY SINGLE/MULTIPLE 37725 08/27/99 ELECTROCARDIOGRAM 89.52 10/09/99 ELECTROCARDIOGRAM COMPLETE 28423 10/09/99 ENDOSC RETROGRADE CHOLANGIOPANCREATOGRAPHY [ERCP] 51.10 07/30/99 ERCP W/SPECIMEN COLLECTION 92856 07/30/99 ESOPHAGOGASTRODUODENOSCOPY [EGD] W/CLOSED BIOPSY 45.16 08/27/99 OTH LYSIS-PERITONEAL ADHES 54.59 07/30/99 OTHER GROUP THERAPY 94.44 05/06/15 REMOVAL OF GALLBLADDER 17734 07/30/99 US EXAM ABDOM COMPLETE 63201 07/30/99 Internal Medicine Assmt/Plan - Assessment Assessment: 1.HYPERLIPIDEMEA. 2.BPH. 3.EDINSON. 4.PSYCHOSIS. - Plan Plan: CONTINUE ON CURRENT MEDICATION AND DIET. Nutritional Asmnt/Malnutr-PDOC - Dietary Evaluation Malnutrition Findings (Please click <Entered> for more info): Nutritional Asmnt/Malnutrition Start: 11/20/16 17: 09 Text: Status: Complete Freq: Document 11/20/16 17:09 [facility] (Rec: 11/20/16 17:19 [email or web address]) Nutritional Asmnt/Malnutrition Patient General Information Nutritional Screening Diagnosis Diagnosis Schizoaffective disorder mixed type with psychotic features Pertinent Medical Hx/Surgical Hx Hyperlipidemia, GERD, chronic pain, lymphedema of lower extremities, psychosis, __ urinary incontinence, benign prostatic hypertrophy Subjective Information 61 year old male. Spoke to pt resting in bed, pt was pleasant. Pt reported undergone gastric bypass for weight loss in 1977, unable to tolerate orange juice (causes diarrhea) due to this. Pt denied other foods that may cause discomfort, pt denied GI discomfort at this time. Pt reported no recent weight changes. Unable to obtain current weight due to bedscale malfunction. No muscle fat wasting noted. Teeth intact. Avg PO intake 75-100% of meals since adm, meeting nutritional needs. Current Diet Order/ Nutrition Support Regular Pertinent Medications Colace, Lasix, Protonix, Klor- Con, Seroquel, Fleet Enema Pertinent Labs Reviewed Nutritional Hx/Data Height 1.83 m Height (Calculated Centimeters) 182.9 Current Weight (lbs) 72.575 kg Weight (Calculated Kilograms) 72.6 Weight (Calculated Grams) 82146.8 [place] Body Weight 178 Recent Weight Change No Weight Status Approriate GI Symptoms Food Allergies No Skin Integrity/Comment: [place] 19. Skin intact. Current %PO Good (75-100%) Estimated Nutritional Goals BEE in Kcals: Using Current wt Calories/Kcals/Kg CBW 160lb/72.7kg Kcals Calculated 1818-2181kcal (25-30kcla/kg) Protein: Using Current wt Protein Calculated 73g (1g/kg) Fluid: ml 1818-2181ml (1ml/kcal) Nutritional Problem 1. Problem Problem No nutritional problem at this time. Intervention/Recommendation Comments 1. Continue with current diet order. Avg PO intake is adequate. Expected Outcomes/Goals Expected Outcomes/Goals 1. PO intake continue to meet at least 75% of estimated nutritioal needs.
--- NOTE | 2016-11-22 21:15 | Progress Notes ---
DATE: 11/22/2016 SUBJECTIVE: Chart reviewed and the patient interviewed. Also discussed the patient's condition with the staff and reviewed records and labs. The patient is still withdrawn and he is interacting minimally with peers and others. The patient also seems to be depressed and more confused today. Also seems to be slightly sleepy and slow in his responses. He is still suspicious and paranoid talking about surgery and when he was going to have it. Otherwise, the patient seems to be slightly calmer. ASSESSMENT: The patient is still psychotic. TREATMENT PLAN: Continue to monitor his behavior and his condition closely. Also, we will monitor his behavior. Also, if the patient continued to be slightly sedated, might decrease his medications. Also, working on discharge plans. [facility]# [id number]
[2016-11-23] MEDS: Pantoprazole 40 mg EC Tab PO SCH (09:26)
[2016-11-23] MEDS: Potassium Chloride 10 mEq ER Tab PO SCH (09:26)
--- NOTE | 2016-11-23 14:47 | Internal Medicine Prog Note ---
Internal Medicine Subjective - Subjective Service Date: 11/23/16 Patient seen and examined:: without staff Patient is:: awake, in bed, talking Per staff patient has:: no adverse event (HE FEELS BETTER,NO COMPLAINTS.) Internal Medicine Objective - Results Result Diagrams: 11/13/16 22:30 11/13/16 22:30 Recent Labs: Laboratory Last Values WBC 6.2 Th/cmm (4.8-10.8) D 11/13/16 22: RBC 4.86 Mil/cmm (4.30-5.70) 11/13/16 22:30 Hgb 14.0 gm/dL (12-16) 11/13/16 22: Hct 43.5 % (41.0-60) 11/13/16: MCV 89.4 fl (80-99) 11/13/16 22: MCH 28.9 pg (26.0-30.0) 11/13/16: MCHC Differential 32.3 pg (28.0-36.0) 11/13/16: RDW 15.0 % (11.5-20.0) 11/13/16 22: Plt Count 261 Th/cmm (150-400) 11/13/16 22:30 MPV 7.9 fl 11/13/16 22:30 Neutrophils % 65.0 % (40.0-80.0) 11/13/16 22:30 Lymphocytes % 21.2 % (20.0-50.0) 11/13/16: Monocytes % 8.3 % (2.0-10.0) 11/13/16: Eosinophils % 1.8 % (0.0-5.0) 11/13/16 22: Basophils % 3.7 % (0.0-2.0) H 11/13/16 22:30 Sodium 139 mEq/L (136-145) 11/13/16 22:30 Potassium 3.5 mEq/L (3.5-5.1) 11/13/16 22:30 Chloride 113 mEq/L (98-107) H 11/13/16 22:30 Carbon Dioxide 20.9 mEq/L (21.0-31.0) L 11/13/16: Anion Gap 8.6 (7.0-16.0) 11/13/16 22:30 BUN 18 mg/dL (7-25) 11/13/16 22:30 Creatinine 1.0 mg/dL (0.7-1.3) 11/13/16 22:30 Est GFR ( Amer) > 60.0 ml/min (>90) 11/13/16 22:30 Est GFR (Non-Af Amer) > 60.0 ml/min 11/13/16 22:30 BUN/Creatinine Ratio 18.0 11/13/16 22:30 Glucose 99 mg/dL (70-105) 11/13/16 22:30 Calcium 8.4 mg/dL (8.6-10.3) L 11/13/16 22:30 TSH 1.99 uIU/ml (0.34-5.60) 11/13/16 22:30 Urine Source RANDOM 11/13/16 22:20 Urine Color YELLOW 11/13/16 22:20 Urine Clarity CLEAR (CLEAR) 11/13/16 22:20 Urine pH 6.0 (4.6 - 8.0) 11/13/16 22:20 Ur Specific [place] 1.025 (1.005-1.030) 11/13/16 22:20 Urine Protein NEGATIVE mg/dL (NEGATIVE) 11/13/16 22:20 Urine Glucose (UA) NEGATIVE mg/dL (NEGATIVE) 11/13/16 22:20 Urine Ketones NEGATIVE mg/dL (NEGATIVE) 11/13/16 22:20 Urine Blood NEGATIVE (NEGATIVE) 11/13/16 22:20 Urine Nitrate NEGATIVE (NEGATIVE) 11/13/16 22:20 Urine Bilirubin NEGATIVE (NEGATIVE) 11/13/16 22:20 Urine Urobilinogen 0.2 E.U./dL (0.2 - 1.0) 11/13/16 22:20 Ur Leukocyte Esterase NEGATIVE (NEGATIVE) 11/13/16 22:20 Urine RBC 0-2 /hpf (0-5) H 11/13/16 22:20 Urine WBC 0-2 /hpf (0-5) 11/13/16 22:20 Ur Epithelial Cells OCCASIONAL /lpf (FEW) 11/13/16 22:20 Urine Bacteria OCCASIONAL /hpf (NONE SEEN) 11/13/16 22:20 Valproic Acid < 10.0 ug/mL (50.0-100.0) L 11/13/16 22:30 RPR NONREACTIVE (NONREACTIVE) 11/13/16 22:30 - Physical Exam Vitals and I&O: Vital Signs Temp 98.2 F 11/23/16 06:39 Pulse 60 11/23/16 06:39 Resp 20 11/23/16 06:39 BP 104/67 11/23/16 09:26 Pulse Ox 98 11/23/16 06:39 Intake & Output 11/22/16 11/23/16 11/23/16 18:59 06:59 18:59 Intake Total 1100 120 Balance 1100 120 Intake: Oral 1100 120 Other: # Voids 4 3 # Bowel Movements 1 Active Medications: Current Medications Acetaminophen (Tylenol) 650 mg PO Q6H PRN PRN Reason: Mild Pain/Headache/T above 101 Stop: 01/12/17 23:18 Last Admin: 11/22/16 20:50 Dose: 650 mg Al Hydrox/Mg Hydrox/Simethicone (Maalox) 30 ml PO Q6H PRN PRN Reason: Dyspepsia Stop: 01/12/17 23:18 Last Admin: 11/15/16 14:32 Dose: 30 ml Baclofen (Lioresal) 10 mg PO BID JANEY Stop: 01/13/17 08:59 Last Admin: 11/23/16 09:26 Dose: 10 mg Divalproex Sodium (Depakote Dr) 500 mg PO HS JANEY PRN Reason: Protocol Stop: 01/13/17 20:59 Last Admin: 11/22/16 20:45 Dose: 500 mg Docusate Sodium (Colace) 100 mg PO DAILY JANEY Stop: 01/13/17 08:59 Last Admin: 11/23/16 09:26 Dose: 100 mg Furosemide (Lasix) 20 mg PO DAILY JANEY Stop: 01/13/17 08:59 Last Admin: 11/23/16 09:26 Dose: Not Given Lorazepam (Ativan) 1 mg PO Q6H PRN; Protocol PRN Reason: Anxiety/Agitation Stop: 01/12/17 23:18 Pantoprazole Sodium (Protonix) 40 mg PO DAILY JANEY Stop: 01/13/17 08:59 Last Admin: 11/23/16 09:26 Dose: 40 mg Potassium Chloride (Klor-Con) 10 meq PO DAILY JAENY Stop: 01/13/17 08:59 Last Admin: 11/23/16 09:26 Dose: Not Given Quetiapine Fumarate 200 mg/ (Quetiapine Fumarate 50 mg) 250 mg PO HS [facility] Stop: 01/20/17 20:59 Last Admin: 11/22/16 20:44 Dose: 250 mg Simvastatin (Zocor) 20 mg PO HS JANEY Stop: 01/13/17 20:59 Last Admin: 11/22/16 20:43 Dose: 20 mg Sodium Phosphate (Fleet Enema) 135 ml RC DAILY PRN PRN Reason: Constipation Stop: 01/12/17 23:18 Tamsulosin HCl (Flomax) 0.4 mg PO DAILY JANEY Stop: 01/13/17 08:59 Last Admin: 11/23/16 09:26 Dose: 0.4 mg Temazepam (Restoril) 30 mg PO HS [facility] Stop: 01/12/17 23:44 Last Admin: 11/22/16 20:43 Dose: 30 mg Trazodone HCl (Desyrel) 100 mg PO HS [facility] Stop: 01/13/17 20:59 Last Admin: 11/22/16 20:42 Dose: 100 mg General: demented HEENT: NC/AT, PERRLA, EOMI, anicteric sclerae, throat clear Neck: Supple, No JVD, No thyromegaly, +2 carotid pulse wo bruit Lungs: CTAB Cardiovascular: RRR, Normal S1, Normal S2, without murmur Abdomen: soft, non-tender, non-distended Extremities: clear Neurological: gait stable - Procedures Procedures: Procedures Procedure Code Date ABDOMEN SURGERY PROCEDURE 28695 07/30/99 CHOLECYSTECTOMY 51.22 07/30/99 DIAGNOSTIC COLONOSCOPY 65455 10/09/99 DILATION OF INTESTINE 46.85 10/09/99 DX ULTRASOUND-ABDOMEN 88.76 07/30/99 EGD BIOPSY SINGLE/MULTIPLE 93626 08/27/99 ELECTROCARDIOGRAM 89.52 10/09/99 ELECTROCARDIOGRAM COMPLETE 82692 10/09/99 ENDOSC RETROGRADE CHOLANGIOPANCREATOGRAPHY [ERCP] 51.10 07/30/99 ERCP W/SPECIMEN COLLECTION 73916 07/30/99 ESOPHAGOGASTRODUODENOSCOPY [EGD] W/CLOSED BIOPSY 45.16 08/27/99 OTH LYSIS-PERITONEAL ADHES 54.59 07/30/99 OTHER GROUP THERAPY 94.44 05/06/15 REMOVAL OF GALLBLADDER 26694 07/30/99 US EXAM ABDOM COMPLETE 09157 07/30/99 Internal Medicine Assmt/Plan - Assessment Assessment: 1.HYPERLIPIDEMEA. 2.BPH. 3.EDINSON. 4.PSYCHOSIS. - Plan Plan: CONTINUE ON CURRENT MEDICATION AND DIET. Nutritional Asmnt/Malnutr-PDOC - Dietary Evaluation Malnutrition Findings (Please click <Entered> for more info): Nutritional Asmnt/Malnutrition Start: 11/20/16 17: 09 Text: Status: Complete Freq: Document 11/20/16 17:09 [facility] (Rec: 11/20/16 17:19 [id number] [email or web address]) Nutritional Asmnt/Malnutrition Patient General Information Nutritional Screening Diagnosis Diagnosis Schizoaffective disorder mixed type with psychotic features Pertinent Medical Hx/Surgical Hx Hyperlipidemia, GERD, chronic pain, lymphedema of lower extremities, psychosis, __ urinary incontinence, benign prostatic hypertrophy Subjective Information 61 year old male. Spoke to pt resting in bed, pt was pleasant. Pt reported undergone gastric bypass for weight loss in 1977, unable to tolerate orange juice (causes diarrhea) due to this. Pt denied other foods that may cause discomfort, pt denied GI discomfort at this time. Pt reported no recent weight changes. Unable to obtain current weight due to bedscale malfunction. No muscle fat wasting noted. Teeth intact. Avg PO intake 75-100% of meals since adm, meeting nutritional needs. Current Diet Order/ Nutrition Support Regular Pertinent Medications Colace, Lasix, Protonix, Klor- Con, Seroquel, Fleet Enema Pertinent Labs Reviewed Nutritional Hx/Data Height 1.83 m Height (Calculated Centimeters) 182.9 Current Weight (lbs) 72.575 kg Weight (Calculated Kilograms) 72.6 Weight (Calculated Grams) 55997.8 [place] Body Weight 178 Recent Weight Change No Weight Status Approriate GI Symptoms Food Allergies No Skin Integrity/Comment: [place] 19. Skin intact. Current %PO Good (75-100%) Estimated Nutritional Goals BEE in Kcals: Using Current wt Calories/Kcals/Kg CBW 160lb/72.7kg Kcals Calculated 1818-2181kcal (25-30kcla/kg) Protein: Using Current wt Protein Calculated 73g (1g/kg) Fluid: ml 1818-2181ml (1ml/kcal) Nutritional Problem 1. Problem Problem No nutritional problem at this time. Intervention/Recommendation Comments 1. Continue with current diet order. Avg PO intake is adequate. Expected Outcomes/Goals Expected Outcomes/Goals 1. PO intake continue to meet at least 75% of estimated nutritioal needs.
--- NOTE | 2016-11-23 21:17 | Progress Notes ---
DATE: 11/23/2016 SUBJECTIVE: Chart reviewed and the patient interviewed. Also discussed the patient's condition with the staff and reviewed records and labs. The patient remains severely depressed. The patient also is still confused. The patient also is sleeping a lot and he is staying by himself in his room most of the time. He also has labile affect. The patient also has difficulty answering questions because of his paranoia and delusion and still thinks that he is in the hospital to have surgery and asking when he is going to have the surgery. ASSESSMENT: The patient is still delusional and depressed. TREATMENT PLAN: We will continue monitoring his behavior and his condition closely. Also, continue to monitor psychotropic medications and evaluating the use of the psychotropics. JOB# [id number]
[2016-11-24] MEDS: Pantoprazole 40 mg EC Tab PO SCH (08:21)
[2016-11-24] MEDS: Potassium Chloride 10 mEq ER Tab PO SCH (08:22)
--- NOTE | 2016-11-24 18:13 | Progress Notes ---
DATE: 11/24/2016 SUBJECTIVE: Chart reviewed and the patient interviewed. Also discussed the patient's condition with the staff and reviewed records and labs. The patient seems to be slightly sedated this morning. The patient is still in a depressed mood and slightly delusional, but less than before. The patient also is interacting slightly more. He denies any suicidal or homicidal ideations. ASSESSMENT: The patient is showing some improvement and less agitated. TREATMENT PLAN: We will continue monitoring his behavior. Also, we will Seroquel to 200 mg at bedtime. We will also work on his discharge plans and we will continue to follow up closely. JOB# [id number]
--- NOTE | 2016-11-24 19:15 | Internal Medicine Prog Note ---
Internal Medicine Subjective - Subjective Service Date: 11/24/16 Patient seen and examined:: without staff Patient is:: awake, in bed, talking Per staff patient has:: no adverse event (HE FEELS BETTER,NO COMPLAINTS.) Internal Medicine Objective - Results Result Diagrams: 11/13/16 22:30 11/13/16 22:30 Recent Labs: Laboratory Last Values WBC 6.2 Th/cmm (4.8-10.8) D 11/13/16: RBC 4.86 Mil/cmm (4.30-5.70) 11/13/16 22:30 Hgb 14.0 gm/dL (12-16) 11/13/16: Hct 43.5 % (41.0-60) 11/13/16: MCV 89.4 fl (80-99) 11/13/16 22: MCH 28.9 pg (26.0-30.0) 11/13/16: MCHC Differential 32.3 pg (28.0-36.0) 11/13/16: RDW 15.0 % (11.5-20.0) 11/13/16 22: Plt Count 261 Th/cmm (150-400) 11/13/16 22:30 MPV 7.9 fl 11/13/16 22:30 Neutrophils % 65.0 % (40.0-80.0) 11/13/16 22:30 Lymphocytes % 21.2 % (20.0-50.0) 11/13/16: Monocytes % 8.3 % (2.0-10.0) 11/13/16: Eosinophils % 1.8 % (0.0-5.0) 11/13/16 22: Basophils % 3.7 % (0.0-2.0) H 11/13/16 22:30 Sodium 139 mEq/L (136-145) 11/13/16 22:30 Potassium 3.5 mEq/L (3.5-5.1) 11/13/16 22:30 Chloride 113 mEq/L (98-107) H 11/13/16 22:30 Carbon Dioxide 20.9 mEq/L (21.0-31.0) L 11/13/16: Anion Gap 8.6 (7.0-16.0) 11/13/16 22:30 BUN 18 mg/dL (7-25) 11/13/16 22:30 Creatinine 1.0 mg/dL (0.7-1.3) 11/13/16 22:30 Est GFR ( Amer) > 60.0 ml/min (>90) 11/13/16 22:30 Est GFR (Non-Af Amer) > 60.0 ml/min 11/13/16 22:30 BUN/Creatinine Ratio 18.0 11/13/16 22:30 Glucose 99 mg/dL (70-105) 11/13/16 22:30 Calcium 8.4 mg/dL (8.6-10.3) L 11/13/16 22:30 TSH 1.99 uIU/ml (0.34-5.60) 11/13/16 22:30 Urine Source RANDOM 11/13/16 22:20 Urine Color YELLOW 11/13/16 22:20 Urine Clarity CLEAR (CLEAR) 11/13/16 22:20 Urine pH 6.0 (4.6 - 8.0) 11/13/16 22:20 Ur Specific [place] 1.025 (1.005-1.030) 11/13/16 22:20 Urine Protein NEGATIVE mg/dL (NEGATIVE) 11/13/16 22:20 Urine Glucose (UA) NEGATIVE mg/dL (NEGATIVE) 11/13/16 22:20 Urine Ketones NEGATIVE mg/dL (NEGATIVE) 11/13/16 22:20 Urine Blood NEGATIVE (NEGATIVE) 11/13/16 22:20 Urine Nitrate NEGATIVE (NEGATIVE) 11/13/16 22:20 Urine Bilirubin NEGATIVE (NEGATIVE) 11/13/16 22:20 Urine Urobilinogen 0.2 E.U./dL (0.2 - 1.0) 11/13/16 22:20 Ur Leukocyte Esterase NEGATIVE (NEGATIVE) 11/13/16 22:20 Urine RBC 0-2 /hpf (0-5) H 11/13/16 22:20 Urine WBC 0-2 /hpf (0-5) 11/13/16 22:20 Ur Epithelial Cells OCCASIONAL /lpf (FEW) 11/13/16 22:20 Urine Bacteria OCCASIONAL /hpf (NONE SEEN) 11/13/16 22:20 Valproic Acid < 10.0 ug/mL (50.0-100.0) L 11/13/16 22:30 RPR NONREACTIVE (NONREACTIVE) 11/13/16 22:30 - Physical Exam Vitals and I&O: Vital Signs Temp 98 F 11/24/16 14:00 Pulse 68 11/24/16 14:00 Resp 18 11/24/16 14:00 BP 100/64 11/24/16 14:00 Pulse Ox 96 11/24/16 14:00 Intake & Output 11/24/16 11/24/16 11/25/16 06:59 18:59 06:59 Intake Total 2400 Balance 2400 Intake: Oral 2400 Other: # Voids 3 4 # Bowel Movements 0 1 Active Medications: Current Medications Acetaminophen (Tylenol) 650 mg PO Q6H PRN PRN Reason: Mild Pain/Headache/T above 101 Stop: 01/12/17 23:18 Last Admin: 11/22/16 20:50 Dose: 650 mg Al Hydrox/Mg Hydrox/Simethicone (Maalox) 30 ml PO Q6H PRN PRN Reason: Dyspepsia Stop: 01/12/17 23:18 Last Admin: 11/15/16 14:32 Dose: 30 ml Baclofen (Lioresal) 10 mg PO BID [facility] Stop: 01/13/17 08:59 Last Admin: 11/24/16 17:10 Dose: 10 mg Divalproex Sodium (Depakote Dr) 500 mg PO HS JANEY PRN Reason: Protocol Stop: 01/13/17 20:59 Last Admin: 11/23/16 21:19 Dose: 500 mg Docusate Sodium (Colace) 100 mg PO DAILY JANE[facility] Stop: 01/13/17 08:59 Last Admin: 11/24/16 08:21 Dose: 100 mg Furosemide (Lasix) 20 mg PO DAILY [facility]ANE[facility] Stop: 01/13/17 08:59 Last Admin: 11/24/16 08:21 Dose: Not Given Lorazepam (Ativan) 1 mg PO Q6H PRN; Protocol PRN Reason: Anxiety/Agitation Stop: 01/12/17 23:18 Last Admin: 11/24/16 17:10 Dose: 1 mg Pantoprazole Sodium (Protonix) 40 mg PO DAILY [facility] Stop: 01/13/17 08:59 Last Admin: 11/24/16 08:21 Dose: 40 mg Potassium Chloride (Klor-Con) 10 meq PO DAILY [facility] Stop: 01/13/17 08:59 Last Admin: 11/24/16 08:22 Dose: Not Given Quetiapine Fumarate (Seroquel) 200 mg PO HS [facility] Stop: 01/20/17 20:59 Simvastatin (Zocor) 20 mg PO HS [facility] Stop: 01/13/17 20:59 Last Admin: 11/23/16 21:20 Dose: 20 mg Sodium Phosphate (Fleet Enema) 135 ml RC DAILY PRN PRN Reason: Constipation Stop: 01/12/17 23:18 Tamsulosin HCl (Flomax) 0.4 mg PO DAILY [facility] Stop: 01/13/17 08:59 Last Admin: 11/24/16 08:21 Dose: 0.4 mg Temazepam (Restoril) 30 mg PO HS [facility] Stop: 01/12/17 23:44 Last Admin: 11/23/16 21:19 Dose: 30 mg Trazodone HCl (Desyrel) 100 mg PO [facility] Stop: 01/13/17 20:59 Last Admin: 11/23/16 21:16 Dose: 100 mg General: demented HEENT: NC/AT, PERRLA, EOMI, anicteric sclerae, throat clear Neck: Supple, No JVD, No thyromegaly, +2 carotid pulse wo bruit Lungs: CTAB Cardiovascular: RRR, Normal S1, Normal S2, without murmur Abdomen: soft, non-tender, non-distended Extremities: clear Neurological: gait stable - Procedures Procedures: Procedures Procedure Code Date ABDOMEN SURGERY PROCEDURE 11266 07/30/99 CHOLECYSTECTOMY 51.22 07/30/99 DIAGNOSTIC COLONOSCOPY 67309 10/09/99 DILATION OF INTESTINE 46.85 10/09/99 DX ULTRASOUND-ABDOMEN 88.76 07/30/99 EGD BIOPSY SINGLE/MULTIPLE 61403 08/27/99 ELECTROCARDIOGRAM 89.52 10/09/99 ELECTROCARDIOGRAM COMPLETE 20678 10/09/99 ENDOSC RETROGRADE CHOLANGIOPANCREATOGRAPHY [ERCP] 51.10 07/30/99 ERCP W/SPECIMEN COLLECTION 58283 07/30/99 ESOPHAGOGASTRODUODENOSCOPY [EGD] W/CLOSED BIOPSY 45.16 08/27/99 OTH LYSIS-PERITONEAL ADHES 54.59 07/30/99 OTHER GROUP THERAPY 94.44 07/06/14 REMOVAL OF GALLBLADDER 44982 07/30/99 US EXAM ABDOM COMPLETE 79519 07/30/99 Internal Medicine Assmt/Plan - Assessment Assessment: 1.HYPERLIPIDEMEA. 2.BPH. 3.EDINSON. 4.PSYCHOSIS. - Plan Plan: CONTINUE ON CURRENT MEDICATION AND DIET. Nutritional Asmnt/Malnutr-PDOC - Dietary Evaluation Malnutrition Findings (Please click <Entered> for more info): Nutritional Asmnt/Malnutrition Start: 11/20/16 17: 09 Text: Status: Complete Freq: Document 11/20/16 17:09 GSUN (Rec: 11/20/16 17:19 [email or web address] [email or web address]) Nutritional Asmnt/Malnutrition Patient General Information Nutritional Screening Diagnosis Diagnosis Schizoaffective disorder mixed type with psychotic features Pertinent Medical Hx/Surgical Hx Hyperlipidemia, GERD, chronic pain, lymphedema of lower extremities, psychosis, __ urinary incontinence, benign prostatic hypertrophy Subjective Information 61 year old male. Spoke to pt resting in bed, pt was pleasant. Pt reported undergone gastric bypass for weight loss in 1977, unable to tolerate orange juice (causes diarrhea) due to this. Pt denied other foods that may cause discomfort, pt denied GI discomfort at this time. Pt reported no recent weight changes. Unable to obtain current weight due to bedscale malfunction. No muscle fat wasting noted. Teeth intact. Avg PO intake 75-100% of meals since adm, meeting nutritional needs. Current Diet Order/ Nutrition Support Regular Pertinent Medications Colace, Lasix, Protonix, Klor- Con, Seroquel, Fleet Enema Pertinent Labs Reviewed Nutritional Hx/Data Height 1.83 m Height (Calculated Centimeters) 182.9 Current Weight (lbs) 72.575 kg Weight (Calculated Kilograms) 72.6 Weight (Calculated Grams) 15782.8 [place] Body Weight 178 Recent Weight Change No Weight Status Approriate GI Symptoms Food Allergies No Skin Integrity/Comment: [place] 19. Skin intact. Current %PO Good (75-100%) Estimated Nutritional Goals BEE in Kcals: Using Current wt Calories/Kcals/Kg CBW 160lb/72.7kg Kcals Calculated 1818-2181kcal (25-30kcla/kg) Protein: Using Current wt Protein Calculated 73g (1g/kg) Fluid: ml 1818-2181ml (1ml/kcal) Nutritional Problem 1. Problem Problem No nutritional problem at this time. Intervention/Recommendation Comments 1. Continue with current diet order. Avg PO intake is adequate. Expected Outcomes/Goals Expected Outcomes/Goals 1. PO intake continue to meet at least 75% of estimated nutritioal needs.
[2016-11-25] MEDS: Pantoprazole 40 mg EC Tab PO SCH (08:48)
[2016-11-25] MEDS: Potassium Chloride 10 mEq ER Tab PO SCH (08:50)
--- NOTE | 2016-11-25 15:30 | Discharge Summary ---
DATE OF DISCHARGE: 11/25/2016 AGE: 61. SEX: Male. PHYSICIAN: Dr. Hurtado. FINAL DIAGNOSIS: PRIMARY DIAGNOSIS: Unspecified psychosis. REASON FOR HOSPITALIZATION: The patient was admitted to the hospital because of increased agitation and irritability, and aggressive behavior and delusion in [facility]. HOSPITAL COURSE: The patient continued to be delusional and paranoid. The patient also had episodes of agitation upon admission. The patient thought that he is in the hospital in order to get "surgery." He also was upset when the staff was trying to redirect him. The patient was given Seroquel and the dose adjusted to 250 mg at bedtime. Also, continue to take Depakote 500 mg at bedtime and trazodone 100 mg at bedtime. Gradually, the patient's affect was brighter, but the patient was still delusional and paranoid and gets agitated when staff tries to redirect him. Also, was started and withdrawn. The patient also seems to be sedated at times and the Seroquel was decreased to 200 mg at bedtime. Gradually, the patient's affect was brighter and the patient was discharged from the hospital. PHYSICAL EXAMINATION: Showed no major medical problems and the patient had no major medical issues while in the hospital. Labs was basically within normal. AFTER-DISCHARGE PLANS: The patient discharged from the hospital with plan to continue to follow him up in [facility]. JOB# [id number]
--- NOTE | 2016-11-25 20:52 | Progress Notes ---
DATE: 11/25/2016 SUBJECTIVE: The patient was seen, chart reviewed, and discussed with staff. The patient is currently in the hospital stating that he wants his kidney stones out, agitated, irritable, angry, and was very isolative initially and argumentative with mood swings. The patient knows that he came here because of back pain. He states he is feeling somewhat better and ___decrease in__ any mood lability. Her mood swings are decreasing per the staff and staff also noting that he has been a lot more interactive and engaged getting out of his room more. Medications were noted. No side effects. The patient noted to be sleeping fairly well and eating well. ASSESSMENT: The patient seems to be improving, tolerant to medications, more interactive, psychotic symptoms dissipating. No longer delusional. The patient is verbalizing he feels better. PLAN: We will continue to monitor. The patient will likely need another 24 hours for monitoring, but I will also try to confirm placement with social service agency director and the staff is noting improvement. JOB# [id number] MG
== END 2016-11-25 18:00 | disposition home or self-care (01) | DRG 885 ==
LOC: ER 22:14 → GERO 23:06
PROVIDERS: ADMIT Psychiatry & Neurology Psychiatry; ATTEND Psychiatry & Neurology Psychiatry
DX: F25.0 Schizoaffective disorder, bipolar type (principal); R56.9 Unspecified convulsions; F29 Unspecified psychosis not due to a substance or known physiological condition; E78.5 Hyperlipidemia, unspecified; K21.9 Gastro-esophageal reflux disease without esophagitis; N40.0 Benign prostatic hyperplasia without lower urinary tract symptoms; F39 Unspecified mood [affective] disorder; G89.29 Other chronic pain; N31.9 Neuromuscular dysfunction of bladder, unspecified; Z82.49 Family history of ischemic heart disease and other diseases of the circulatory system
CPT/HCPCS: 36415-UA; 80048-TC; 80164-TC; 81001-TC; 84443-TC; 85025-TC; 86592-TC; 93005; Z7610